=== PATIENT | female | born 1950 | race Caucasian/White ===

== ENCOUNTER 2019-02-01 01:38 | Emergency (ER) | payer MEDICARE ==
[2019-02-01] MEDS ORDERED: Sodium Chloride 0.9% 1000 ML 1,000 ML IV STA (01:56)
--- NOTE | 2019-02-01 01:59 | ERPHSYRPT ---
- History of Present Illness Source: patient Exam Limitations: no limitations Physician History: Vaginal bleeding, intermittently over one month. Bleeding worsened 30 minutes prior to coming into the emergency department, occurring spontaneously Timing/Duration: hour(s) (0.5), constant, sudden, other (began one month ago; 4 total episodes of vaginal bleeding, last episode two days ago) Activites at Onset: none, rest Quality: pressure Onset Location: other (patient has no current pain; approximately 8 weeks ago, patient felt some pain in the RLQ area with radiation to the groin) Pain Radiation: none Severity of Pain-Max: moderate Severity of Pain-Current: none Prior abdominal problems: similar symptoms Modifying Factors: Improves With: nothing Associated Symptoms: No abdominal pain, No fever, No chills, No diaphoresis, No nausea, No vomiting, No dysuria, No nocturia, No polyuria, No urinary frequency , No loss of bladder control, No lower back pain, No swelling, No vaginal discharge, No vaginal fluid leakage Allergies/Adverse Reactions: adhesive Allergy (Intermediate, Verified 06/10/13 10:06) Rash latex Allergy (Intermediate, Verified 06/10/13 10:06) Rash Burning where latex touches Penicillins Allergy (Intermediate, Verified 06/10/13 10:06) Rash Home Medications: Aspirin [Aspirin EC] 81 mg PO DAILY 06/07/13 [History] Clopidogrel Bisulfate 75 mg [PLAVIX 75 MG Tablet] 75 mg PO UD 06/07/13 [ History] Rosuvastatin Calcium [Crestor] 10 mg PO DAILY 06/07/13 [History] Amlodipine Besylate 5 mg PO DAILY 02/01/19 [History] Hx Influenza Vaccination/Date Given: No Hx Pneumococcal Vaccination/Date Given: No - Review of Systems Constitutional: No Fever, No Chills Eyes: No Symptoms, No Eye Redness, No Photophobia, No Vision Changes Ears, Nose, & Throat: No Symptoms, No Epistaxis, No Throat Pain Respiratory: No Cough, No Dyspnea Cardiac: No Chest Pain, No Edema, No Syncope Abdominal/Gastrointestinal: No Abdominal Pain, No Nausea, No Vomiting, No Diarrhea, No Hematemesis, No Hematochezia Genitourinary Symptoms: Vaginal Bleeding, No Dysuria, No Hematuria, No Urinary Retention, No Flank Pain Musculoskeletal: No Back Pain, No Neck Pain Skin: No Rash Neurological: No Dizziness, No Focal Weakness, No Sensory Changes Psychological: No Symptoms Endocrine: No Symptoms Hematologic/Lymphatic: No Easy Bleeding, No Easy Bruising All Other Systems: Reviewed and Negative - Past Medical History Pertinent Past Medical History: Yes Neurological History: Migraines, Peripheral Neuropathy ENT History: No Pertinent History Cardiac History: Congestive Heart Failure, Hypertension, Myocardial Infarction ( [place]), Other Respiratory History: CHF, COPD Endocrine Medical History: Other Musculoskeletal History: Osteoarthritis GI Medical History: No Pertinent History History: No Pertinent History Psycho-Social History: No Pertinent History Female Reproductive Disorders: No Pertinent History Other Medical History: boarderline DMII, L GARFIELD - Past Surgical History Past Surgical History: Yes Neuro Surgical History: No Pertinent History Cardiac: Angioplasty, Cardiac Catheterization, Cardiac Stent Respiratory: No Pertinent History Gastrointestinal: No Pertinent History Genitourinary: No Pertinent History Musculoskeletal: Joint Replacement Female Surgical History: Tubal Ligation Other Surgical History: Left hip replaced 2007 - Social History Smoking Status: Former smoker Exposure to second hand smoke: No Drug Use: none - Nursing Vital Signs Nursing Vital Signs: Initial Vital Signs Temperature 98.0 F 02/01/19 01:39 Pulse Rate 77 02/01/19 01:39 Respiratory Rate 18 02/01/19 01:39 Blood Pressure 122/74 02/01/19 01:39 O2 Sat by Pulse Oximetry 95 02/01/19 01:39 Pain Scale Pain Intensity 0 - Physical Exam General Appearance: no apparent distress, alert Eye Exam: PERRL/EOMI, eyes nml inspection Ears, Nose, Throat Exam: normal ENT inspection, TMs normal, pharynx normal, moist mucous membranes Neck Exam: normal inspection, non-tender, supple, full range of motion Respiratory Exam: normal breath sounds, lungs clear, No respiratory distress Cardiovascular Exam: regular rate/rhythm, normal heart sounds, normal peripheral pulses Gastrointestinal/Abdomen Exam: soft, No tenderness, No mass Pelvic Exam: normal external exam, vaginal bleeding, other (chaperoned by Sydnee Shah RN; clotted blood in the posterior vaginal vault, no active bleeding from vaginal pickens or from the cervix), No cervical motion tenderness Rectal Exam: No blood Back Exam: normal inspection, normal range of motion, No CVA tenderness, No vertebral tenderness Extremity Exam: normal inspection, normal range of motion, pelvis stable Neurologic Exam: alert, oriented x 3, cooperative, 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, normal mood/affect, sensation nml, No motor deficits Skin Exam: normal color, warm, dry - Radiology Ultrasound Exam Pelvis Ultrasound: Other (Reviewed Radiology report from 01/26/2019-showed thickened endometrial stripe with differential including endometrial carcinoma vs endometrial hyperplasia; no masses; ovaries not visualized; no suspicious adnexal masses or fluid collections seen) Ordered Tests: Active Orders 24 hr Category Date Time Status IV Insertion STAT Care 02/01/19 01:56 Active Orthostatic Vital Signs STAT Care 02/01/19 02:41 Active AMYLASE Stat Lab 02/01/19 02:10 Completed CBC W DIFF Stat Lab 02/01/19 02:10 Completed CMP Stat Lab 02/01/19 02:10 Completed CULTURE,URINE Stat Lab 02/01/19 02:10 Received Lactic Acid Stat Lab 02/01/19 02:15 Completed PROTIME WITH INR Stat Lab 02/01/19 02:10 Completed PTT Stat Lab 02/01/19 02:10 Completed UA W/RFX UR CULTURE Stat Lab 02/01/19 02:10 Completed Medication Summary Discontinued Medications Generic Name Dose Route Start Last Admin Trade Name Freq PRN Reason Stop Dose Admin Sodium Chloride 1,000 mls @ 999 mls/hr 02/01/19 01:56 02/01/19 02:17 Sodium Chloride 0.9% 1000 Ml IV 02/01/19 02:56 999 mls/hr .Q1H1M STA Administration Sodium Chloride Confirm 02/01/19 02:16 Sodium Chloride 0.9% 1000 Ml Administered 02/01/19 02:17 Dose 1,000 mls @ ud .ROUTE .K-MED ONE Lab/Rad Data: Laboratory Result Diagrams 02/01/19 02:10 02/01/19 02:10 Laboratory Results 02/01/19 02/01/19 02/01/19 Range/Units 02:15 02:10 02:10 WBC (4.0-10.5) K/mm3 RBC (4.1-5.4) M/mm3 Hgb (12.0-16.0) gm/dl Hct (35-47) % MCV (78-100) fl MCH (26-32) pg MCHC (32-36) g/dl RDW (11.5-14.0) % Plt Count (150-450) K/mm3 MPV (6-9.5) fl Gran % (36.0-66.0) % Eos # (Auto) (0-0.5) Absolute Lymphs (auto) (1.0-4.6) Absolute Monos (auto) (0.0-1.3) Lymphocytes % (24.0-44.0) % Monocytes % (0.0-12.0) % Eosinophils % (0.00-5.0) % Basophils % (0.0-0.4) % Absolute Granulocytes (1.4-6.9) Basophils # (0-0.4) PT 10.7 (9.95-12.35) SECONDS INR 0.95 (0.8-3.0) APTT 28.0 (25.3-37.0) SECONDS Sodium (137-145) mmol/L Potassium (3.5-5.1) mmol/L Chloride (98-107) mmol/L Carbon Dioxide (22-30) mmol/L Anion Gap (5-15) MEQ/L BUN (7-17) mg/dL Creatinine (0.52-1.04) mg/dL Estimated GFR ML/MIN Glucose (74-106) mg/dL Lactic Acid 1.4 (0.4-2.0) Calcium (8.4-10.2) mg/dL Total Bilirubin (0.2-1.3) mg/dL AST (14-36) U/L ALT (0-35) U/L Alkaline Phosphatase (38-126) U/L Serum Total Protein (6.3-8.2) g/dL Albumin (3.5-5.0) g/dL Amylase (30-110) U/L Urine Color YELLOW (YELLOW) Urine Appearance SLIGHTLY CLOUDY (CLEAR) Urine pH 6.0 (5-6) Ur Specific [place] 1.021 (1.005-1.025) Urine Protein 30 (Negative) Urine Ketones NEGATIVE (NEGATIVE) Urine Blood MODERATE (0-5) Ced/ul Urine Nitrite NEGATIVE (NEGATIVE) Urine Bilirubin NEGATIVE (NEGATIVE) Urine Urobilinogen 4 (0-1) mg/dL Ur Leukocyte Esterase NEGATIVE (NEGATIVE) Urine WBC (Auto) 3-5 (0-5) /HPF Urine RBC (Auto) 26-50 (0-2) /HPF U Epithel Cells (Auto) NONE (FEW) /HPF Urine Bacteria (Auto) NONE (NEGATIVE) /HPF Urine Mucus (Auto) SLIGHT (NEGATIVE) /HPF Urine Culture Reflexed ORDERED SEPARATELY (NO) Urine Glucose NEGATIVE (NEGATIVE) mg/dL 02/01/19 02/01/19 Range/Units 02:10 02:10 WBC 6.1 (4.0-10.5) K/mm3 RBC 4.05 L (4.1-5.4) M/mm3 Hgb 11.5 L (12.0-16.0) gm/dl Hct 35.6 (35-47) % MCV 87.9 (78-100) fl MCH 28.3 (26-32) pg MCHC 32.3 (32-36) g/dl RDW 14.7 H (11.5-14.0) % Plt Count 194 (150-450) K/mm3 MPV 9.6 H (6-9.5) fl Gran % 56.6 (36.0-66.0) % Eos # (Auto) 0.20 (0-0.5) Absolute Lymphs (auto) 1.73 (1.0-4.6) Absolute Monos (auto) 0.67 (0.0-1.3) Lymphocytes % 28.2 (24.0-44.0) % Monocytes % 10.9 (0.0-12.0) % Eosinophils % 3.3 (0.00-5.0) % Basophils % 1.0 (0.0-0.4) % Absolute Granulocytes 3.48 (1.4-6.9) Basophils # 0.06 (0-0.4) PT (9.95-12.35) SECONDS INR (0.8-3.0) APTT (25.3-37.0) SECONDS Sodium 141 (137-145) mmol/L Potassium 3.8 (3.5-5.1) mmol/L Chloride 106 (98-107) mmol/L Carbon Dioxide 26 (22-30) mmol/L Anion Gap 13.4 (5-15) MEQ/L BUN 19 H (7-17) mg/dL Creatinine 0.70 (0.52-1.04) mg/dL Estimated GFR > 60.0 ML/MIN Glucose 139 H (74-106) mg/dL Lactic Acid (0.4-2.0) Calcium 9.1 (8.4-10.2) mg/dL Total Bilirubin 0.30 (0.2-1.3) mg/dL AST 29 (14-36) U/L ALT 32 (0-35) U/L Alkaline Phosphatase 73 (38-126) U/L Serum Total Protein 7.2 (6.3-8.2) g/dL Albumin 4.2 (3.5-5.0) g/dL Amylase 46 (30-110) U/L Urine Color (YELLOW) Urine Appearance (CLEAR) Urine pH (5-6) Ur Specific [place] (1.005-1.025) Urine Protein (Negative) Urine Ketones (NEGATIVE) Urine Blood (0-5) Ced/ul Urine Nitrite (NEGATIVE) Urine Bilirubin (NEGATIVE) Urine Urobilinogen (0-1) mg/dL Ur Leukocyte Esterase (NEGATIVE) Urine WBC (Auto) (0-5) /HPF Urine RBC (Auto) (0-2) /HPF U Epithel Cells (Auto) (FEW) /HPF Urine Bacteria (Auto) (NEGATIVE) /HPF Urine Mucus (Auto) (NEGATIVE) /HPF Urine Culture Reflexed (NO) Urine Glucose (NEGATIVE) mg/dL - Progress Progress: improved Progress Note: 02/01/19 02:56 Patient had normal orthostatic vital signs and no further complaints of vaginal bleeding. With patient having normal vitals, orthostatic vital signs, remaining hemodynamically in good condition throughout her time in the emergency department, normal labwork including coagulation factors and lactic acid with a mild drop in Hemoglobin (0.9mg/dl) in comparison to labs from 10 months ago, patient will be discussed with [facility] in [place], [place] to see if patient is a candidate for transfer and admission. 02/01/19 03:26 Dr Mcleod, [employer] WORK[employer] was discussed the patient and her presentation, labs, U/S results and hemodynamics. Dr Mcleod or Dr Stapleton will see the patient as an outpatient in the next 3 days this week for follow-up and patient may be discharged home. Blood Culture(s) Obtained: No Antibiotics given: No Discussed with : Other (Dr Mcleod, [employer] SERVICE WORKER at [facility] in [place], [place]. Dr Mcleod does not feel patient is a candidate for transfer now, but patient will be seen in the next 3 days in the office as an outpatient) Counseled pt/family regarding: lab results, diagnosis, need for follow-up, rad results - Departure Departure Disposition: Home Clinical Impression: Abnormal uterine bleeding, Blood loss anemia Hypertension Qualifiers: Hypertension type: essential hypertension Qualified Code(s): I10 - Essential ( primary) hypertension Condition: Good Critical Care Time: No Referrals: LACY CORDOVA [Primary Care Provider] - Follow Up with PCP BERTHA STAPLETON MD [COURTESY STAFF] - 02/08/19 Instructions: Bleeding After Menopause, Anemia Caused by Low Iron, Adult (DC) Additional Instructions: return immediately to the emergency department if bleeding is any worse or any new symptoms such as dizziness, weakness, palpitations, shortness of breath or any concerning signs or symptoms occur for re-evaluation in the emergency department. Call your [employer] L[employer] Operator on 02/01/2019 in the morning as Dr Stapleton or Dr Mcleod will see you this week in the office.
[2019-02-01 02:16] LABS: Basophil (Absolute #) 0.06 (0-0.4); Eosinophil % 3.3 % (0.00-5.0); Granulocyte Absolute (ANC) 3.48 (1.4-6.9); Granulocytes % 56.6 % (36.0-66.0); Hematocrit 35.6 % (35-47); Hemoglobin 11.5 gm/dl (12.0-16.0); Lymphocyte (Absolute #) 1.73 (1.0-4.6); Lymphocytes % 28.2 % (24.0-44.0); Mean Cell Volume 87.9 fl (78-100); Mean Corpuscular Hgb Concent. 32.3 g/dl (32-36); Mean Platelet Volume 9.6 fl (6-9.5); Monocyte (Absolute #) 0.67 (0.0-1.3); Monocytes % 10.9 % (0.0-12.0); Platelet Count 194 K/mm3 (150-450); Red Blood Count 4.05 M/mm3 (4.1-5.4); Red Cell Distribution Width 14.7 % (11.5-14.0); White Blood Count 6.1 K/mm3 (4.0-10.5)
[2019-02-01] MEDS ORDERED: Sodium Chloride 0.9% 1000 ML 1,000 ML ONE (02:16)
[2019-02-01 02:17] LABS: Mean Corpuscular Hemoglobin 28.3 pg (26-32)
[2019-02-01 02:26] LABS: INR 0.95 (0.8-3.0); PROTIME 10.7 SECONDS (9.95-12.35)
[2019-02-01 02:29] LABS: Appearance SLIGHTLY CLOUDY (CLEAR); Bilirubin NEGATIVE (NEGATIVE); Blood MODERATE Ery/ul (0-5); Glucose NEGATIVE (NEGATIVE); Ketones NEGATIVE (NEGATIVE); Leukocyte Esterase NEGATIVE (NEGATIVE); Mucus SLIGHT /HPF (NEGATIVE); Nitrite NEGATIVE (NEGATIVE); Protein,Urine Dip 30 (Negative); RBC 26-50 /HPF (0-2); Specific Gravity 1.021 (1.005-1.025); Urobilinogen 4 mg/dL (0-1)
[2019-02-01 02:30] LABS: ALBUMIN 4.2 g/dL (3.5-5.0); ALKALINE PHOSPHATASE 73 U/L (38-126); AMYLASE 46 U/L (30-110); ANION GAP 13.4 MEQ/L (5-15); BLOOD UREA NITROGEN 19 mg/dL (7-17); CHLORIDE 106 mmol/L (98-107); Calcium 9.1 mg/dL (8.4-10.2); Carbon Dioxide 26 mmol/L (22-30); Glucose 139 mg/dL (74-106); Potassium 3.8 mmol/L (3.5-5.1); SGOT/AST 29 U/L (14-36); SGPT/ALT 32 U/L (0-35); SODIUM 141 mmol/L (137-145); Total Protein 7.2 g/dL (6.3-8.2)
[2019-02-01 03:58] VITALS: BP 135/76; PULSE 80; O2SAT 97
== END 2019-02-01 04:12 | disposition home or self-care (01) ==
LOC: ED 01:38
DX: N93.9 Abnormal uterine and vaginal bleeding, unspecified (principal); D50.0 Iron deficiency anemia secondary to blood loss (chronic); I10 Essential (primary) hypertension; R10.31 Right lower quadrant pain; Z79.899 Other long term (current) drug therapy
CPT/HCPCS: 36000; 36415; 80053; 81001; 82150; 83605; 85025; 85610; 85730; 87086; 96360; 99284

== ENCOUNTER 2019-03-25 11:10 | Inpatient (IN) | payer MEDICARE ==
--- NOTE | 2019-03-25 11:20 | ERPHSYRPT ---
- History of Present Illness Time Seen by Provider: 03/25/19 11:12 Source: patient, family, old records Exam Limitations: no limitations Physician History: PT IS A 68 Y/O WOMAN S/P STEF FOR ENDOMETRIAL CANCER WHO WAS REFERRED BY HER TEAM AT [facility] FOR CT POSITIVE FOR "EXTENSIVE NEAR OCCLUDING PULMONARY EMBOLI SEEN IN THE DISTAL MAIN PULMONARY ARTERIES EXTENDING INTO ALL LOBAR AND PORTIONS OF THE SEGMENTAL BRANCHES BILATERALLY. HEART IS ENLARGED. NO MASS OR INFILTRATE." PT HAS APPT WITH ONCOLOGY AND MULTIPLE MEDICAL PROBLEMS SO WAS REFERRED BY HER TEAM FOR ANTICOAGULATION MANAGEMENT. PT REFUSED TO GO TO [facility] BC DIFFICULTY WITH TRAVELLING. PT REPORTS THAT SHE HAS BEEN DYSPNEIC FOR " A LONG TIME DENIES CP/PALPITATIONS/FEVER/CHILLS/DYSURIA/HEMATURIA /VAG BLEED OR DC. NO LE ASYM OR LONG TRIPS. + MORE WITH MINIMAL EXERTION. Allergies/Adverse Reactions: adhesive Allergy (Intermediate, Verified 03/25/19 11:26) Rash latex Allergy (Intermediate, Verified 03/25/19 11:26) Rash Burning where latex touches Penicillins Allergy (Intermediate, Verified 03/25/19 11:26) Rash Home Medications: Aspirin [Aspirin EC] 81 mg PO DAILY 06/07/13 [History] Clopidogrel Bisulfate 75 mg [PLAVIX 75 MG Tablet] 75 mg PO UD 06/07/13 [ History] Rosuvastatin Calcium [Crestor] 10 mg PO DAILY 06/07/13 [History] Amlodipine Besylate 5 mg PO DAILY 02/01/19 [History] Hx Tetanus, Diphtheria Vaccination/Date Given: No (unknown) Hx Influenza Vaccination/Date Given: No Hx Pneumococcal Vaccination/Date Given: No - Review of Systems Constitutional: No Symptoms, No Fever, No Chills, No Fatigue, No Lethargy, No Malaise, No Night Sweats, No Weakness, No Weight Loss Eyes: No Symptoms, No Discharge, No Eye Pain, No Eye Redness, No Itchy, No Photophobia, No Tearing, No Vision Changes, No Double Vision, No Foreign Body Sensation Ears, Nose, & Throat: No Symptoms, No Ear Pain, No Ear Discharge, No Hearing Changes, No Tinnitus, No Nose Congestion, No Nose Discharge, No Epistaxis, No Mouth Pain, No Mouth Swelling, No Throat Pain, No Throat Swelling, No Hoarse, No Painful Swallowing, No Stridor Respiratory: No Symptoms, Cough, Dyspnea, Dyspnea on Exertion (MORE), No Cyanosis , No Stridor, No Wheezing Cardiac: No Symptoms, No Chest Pain, No Edema, No Palpitations, No Syncope, No Orthopnea Abdominal/Gastrointestinal: No Symptoms, No Abdominal Pain, No Nausea, No Vomiting, No Diarrhea, No Constipation, No Hematemesis, No Hematochezia, No Melena, No Dysphagia, No Appetite Changes Genitourinary Symptoms: No Symptoms, No Dysuria, No Frequency, No Hematuria, No Hesitancy, No Incontinence, No Urgency, No Urinary Retention, No Flank Pain, No Menorrhagia, No , No Vaginal Bleeding, No Vaginal Discharge Musculoskeletal: No Symptoms, No Arthralgias, No Back Pain, No Neck Pain, No Deformity, No Fall, No Injury, No Joint Redness, No Joint Pain, No Joint Swelling, No Myalgias Skin: No Symptoms, No Cellulitis, No Decubiti, No Induration, No Pruritis, No Rash, No Skin Lesions, No Dryness Neurological: No Symptoms, No Dizziness, No Focal Weakness, No Gait Changes, No Headache, No Irritability, No Lethargy, No Paralysis, No Parasthesia, No Seizure , No Sensory Changes, No Speech Changes, No Tics, No Tremors, No Vertigo Psychological: No Symptoms, No Alcohol Abuse, No Drug Abuse, No Anxiety, No Depression, No Suicidal Ideations, No Homicidal Ideations, No Emotional Lability , No Hallucinations, No Memory Loss, No Mood Changes Endocrine: No Symptoms, No Polyuria, No Polydipsia, No Hair Changes, No Cold Intolerance, No Excessive Sweating, No Goiter Hematologic/Lymphatic: No Symptoms, No Anemia, No Blood Clots, No Easy Bleeding , No Gum Bleeding, No Easy Bruising, No Adenopathy Immunological/Allergic: No Symptoms All Other Systems: Reviewed and Negative - Past Medical History Pertinent Past Medical History: Yes Neurological History: Migraines, Peripheral Neuropathy ENT History: No Pertinent History Cardiac History: Congestive Heart Failure, Hypertension, Myocardial Infarction ( [place]), Other Respiratory History: CHF, COPD Endocrine Medical History: Other Musculoskeletal History: Osteoarthritis GI Medical History: No Pertinent History History: No Pertinent History Psycho-Social History: No Pertinent History Female Reproductive Disorders: No Pertinent History Other Medical History: boarderline DMII, L GARFIELD - Past Surgical History Past Surgical History: Yes Neuro Surgical History: No Pertinent History Cardiac: Angioplasty, Cardiac Catheterization, Cardiac Stent Respiratory: No Pertinent History Gastrointestinal: No Pertinent History Genitourinary: No Pertinent History Musculoskeletal: Joint Replacement Female Surgical History: Tubal Ligation Other Surgical History: Left hip replaced 2007 - Social History Smoking Status: Former smoker Exposure to second hand smoke: No Drug Use: none Patient Lives Alone: No - Nursing Vital Signs Nursing Vital Signs: Initial Vital Signs Temperature 97.6 F 03/25/19 11:15 Pulse Rate 116 H 03/25/19 11:15 Respiratory Rate 26 H 03/25/19 11:15 Blood Pressure 157/96 03/25/19 11:15 O2 Sat by Pulse Oximetry 92 L 03/25/19 11:15 Pain Scale Pain Intensity 0 - Physical Exam General Appearance: no apparent distress, alert Eye Exam: PERRL/EOMI, eyes nml inspection, other (fundi normal petros), No scleral icterus, No pale conjunctivae, No photophobia, No EOM palsy/anisocoria Ears, Nose, Throat Exam: normal ENT inspection, TMs normal, pharynx normal, TM abnormal (L), other (uvula midline, floor of mouth soft), No moist mucous membranes, No dry mucous membranes, No TM abnormal (R), No pharyngeal erythema, No tonsillar exudate Neck Exam: normal inspection, non-tender, supple, full range of motion, No meningismus, No mass, No Brudzinski, No Kernig's, No carotid bruit, No JVD, No limited range of motion, No lymphadenopathy, No midline tenderness, No thyromegaly Respiratory Exam: normal breath sounds, lungs clear, airway intact, No chest tenderness, No respiratory distress, No diminished breath sounds, No accessory muscle use, No prolonged expirations, No crackles/rales, No rhonchi, No wheezing , No stridor, No pleural rub Cardiovascular Exam: regular rate/rhythm, normal heart sounds, normal peripheral pulses, tachycardia, capillary refill <2 sec, No murmur, No friction rub, No gallop, No bradycardia, No irregular, No capillary refill 2-3 sec, No capillary refill >3 sec, No edema, No pulse deficit Gastrointestinal/Abdomen Exam: soft, normal bowel sounds, No tenderness, No distention, No mass, No guarding, No ecchymosis, No pulsatile mass, No rebound, No hernia, No hepatomegaly, No organomegaly, No splenomegaly, No bruit Pelvic Exam: normal external exam Rectal Exam: deferred Back Exam: normal inspection, normal range of motion, other (neg slr petros, no sacral anesthesia, dtr 2/4 pteros patella), No CVA tenderness, No vertebral tenderness, No rash, No decreased range of motion, No muscle spasm, No point tenderness Extremity Exam: normal inspection, normal range of motion, pelvis stable, No amputations, No contusions, No calf tenderness, No deformities, No lacerations, No parasthesia, No paralysis, No inflammation, No joint swelling, No limited range of motion, No pedal edema, No swelling, No tenderness Neurologic Exam: alert, oriented x 3, cooperative, thread trimmer II-XII nml as tested, normal mood/affect, nml cerebellar function, nml station & gait, sensation nml, No motor deficits, No sensory deficit, No disoriented, No confusion, No agitation, No uncooperative, No intoxicated appearance, No depressed mood/affect , No motor weakness, No facial droop, No slurred speech, No aphasia, No dysarthria, No abnormal gait, No abnormal cerebellar tests, No abnormal thread trimmer II- XII, No EOM palsy Skin Exam: normal color, warm, dry, No rash, No petechiae, No jaundice, No abrasion, No cyanosis, No diaphoresis, No decubitus, No embolic lesions, No ecchymosis, No jaundice, No laceration, No mottled, No pale Lymphatic Exam: No adenopathy SpO2 Interpretation: normal O2 Delivery: Room Air - Course Nursing assessment & vital signs reviewed: Yes EKG Interpreted by Me: RATE (89), NORMAL AXIS, NORMAL INTERVALS, NORMAL QRS, NORMAL ST-T Ordered Tests: Active Orders 24 hr Category Date Time Status Crown Perforator Operator STAT Care 03/25/19 11:23 Active EKG-ER Only STAT Care 03/25/19 11:21 Active IV Insertion STAT Care 03/25/19 11:21 Active Oxygen-ED Only Nasal Cannula 2 lpm Care 03/25/19 11:21 Active Pulse Oximetry (ED) STAT Care 03/25/19 11:21 Active ABG [ARTERIAL BLOOD GASES] Stat Lab 03/25/19 11:45 Completed CBC W DIFF Stat Lab 03/25/19 11:37 Completed CMP Stat Lab 03/25/19 11:37 Completed PROTIME WITH INR Stat Lab 03/25/19 11:37 Completed PTT Stat Lab 03/25/19 11:37 Completed TROPONIN Q3H Lab 03/25/19 11:37 Completed TROPONIN Q3H Lab 03/25/19 14:30 Ordered TROPONIN Q3H Lab 03/25/19 17:30 Ordered TROPONIN Q3H Lab 03/25/19 20:30 Ordered TROPONIN Q3H Lab 03/25/19 23:30 Ordered UA W/RFX UR CULTURE Stat Lab 03/25/19 11:23 Uncollected Medication Summary Generic Name Dose Route Start Last Admin Trade Name Freq PRN Reason Stop Dose Admin Heparin Sodium/Dextrose 25,000 units in 250 mls @ 10 mls/hr 03/25/19 11:30 12:02 Heparin 25,000 Units/D5w 250ml Premix IV 04/24/19 11:29 10 mls/hr .Q24H GUANAKO 10 mls/hr Administration Discontinued Medications Generic Name Dose Route Start Last Admin Trade Name Freq PRN Reason Stop Dose Admin Heparin Sodium (Beef Lung) 5,000 unit 03/25/19 11:24 03/25/19 11:59 Heparin 5000 Units/0.5 Ml (High Risk Med) IV 03/25/19 11:25 5,000 unit STAT ONE Administration Heparin Sodium (Beef Lung) Confirm 03/25/19 11:46 Heparin 5000 Units/0.5 Ml (High Risk Med) Administered 03/25/19 11:47 Dose 5,000 unit .ROUTE .STK-MED ONE Sodium Chloride 1,000 mls @ 999 mls/hr 03/25/19 11:21 03/25/19 12:00 Sodium Chloride 0.9% 1000 Ml IV 03/25/19 12:21 999 mls/hr .Q1H1M STA Administration Sodium Chloride Confirm 03/25/19 11:55 Sodium Chloride 0.9% 1000 Ml Administered 03/25/19 11:56 Dose 1,000 mls @ ud .ROUTE .STK-MED ONE Lab/Rad Data: Laboratory Result Diagrams 03/25/19 11:37 03/25/19 11:37 Laboratory Results 03/25/19 03/25/19 03/25/19 Range/Units 11:45 11:37 11:37 WBC (4.0-10.5) K/mm3 RBC (4.1-5.4) M/mm3 Hgb (12.0-16.0) gm/dl Hct (35-47) % MCV (78-100) fl MCH (26-32) pg MCHC (32-36) g/dl RDW (11.5-14.0) % Plt Count (150-450) K/mm3 MPV (6-9.5) fl Gran % (36.0-66.0) % Eos # (Auto) (0-0.5) Absolute Lymphs (auto) (1.0-4.6) Absolute Monos (auto) (0.0-1.3) Lymphocytes % (24.0-44.0) % Monocytes % (0.0-12.0) % Eosinophils % (0.00-5.0) % Basophils % (0.0-0.4) % Absolute Granulocytes (1.4-6.9) Basophils # (0-0.4) PT 12.4 H (9.95-12.35) SECONDS INR 1.10 (0.8-3.0) APTT 30.5 (25.3-37.0) SECONDS Puncture Site LEFT BRACHIAL pCO2 35 (35-45) mmHg pO2 67 L (75-100) mmHg Base Excess 4.1 H (-2.0-2.0) O2 Saturation 93.0 L (94-100) g/dF ABG pH 7.50 H (7.35-7.45) ABG HCO3 27.3 (22-28) ABG O2 Sat (Measured) 95.9 (95-100) % Elías Test NOT APPLICABLE A-a Gradient 39 a/A Ratio 0.63 Hemoglobin 11.1 Carboxyhemoglobin 2.2 (0.0-6.9) % THgb Methemoglobin 0.8 L (1.4-1.5) % Temperature 37.0 C POC O2 Flow Rate 21 % Sodium (137-145) mmol/L Potassium 4.2 (3.5-5.1) mmol/L Chloride (98-107) mmol/L Carbon Dioxide (22-30) mmol/L Anion Gap (5-15) MEQ/L BUN (7-17) mg/dL Creatinine (0.52-1.04) mg/dL Estimated GFR ML/MIN Glucose (74-106) mg/dL Calcium (8.4-10.2) mg/dL Total Bilirubin (0.2-1.3) mg/dL AST (14-36) U/L ALT (0-35) U/L Alkaline Phosphatase (38-126) U/L Troponin I < 0.012 (0.000-0.034) ng/mL Serum Total Protein (6.3-8.2) g/dL Albumin (3.5-5.0) g/dL 03/25/19 03/25/19 Range/Units 11:37 11:37 WBC 7.4 (4.0-10.5) K/mm3 RBC 4.23 (4.1-5.4) M/mm3 Hgb 11.3 L (12.0-16.0) gm/dl Hct 35.4 (35-47) % MCV 83.7 (78-100) fl MCH 26.7 (26-32) pg MCHC 31.9 L (32-36) g/dl RDW 14.6 H (11.5-14.0) % Plt Count 256 (150-450) K/mm3 MPV 9.8 H (6-9.5) fl Gran % 70.5 H (36.0-66.0) % Eos # (Auto) 0.24 (0-0.5) Absolute Lymphs (auto) 1.27 (1.0-4.6) Absolute Monos (auto) 0.62 (0.0-1.3) Lymphocytes % 17.3 L (24.0-44.0) % Monocytes % 8.4 (0.0-12.0) % Eosinophils % 3.3 (0.00-5.0) % Basophils % 0.5 (0.0-0.4) % Absolute Granulocytes 5.18 (1.4-6.9) Basophils # 0.04 (0-0.4) PT (9.95-12.35) SECONDS INR (0.8-3.0) APTT (25.3-37.0) SECONDS Puncture Site pCO2 (35-45) mmHg pO2 (75-100) mmHg Base Excess (-2.0-2.0) O2 Saturation (94-100) g/dF ABG pH (7.35-7.45) ABG HCO3 (22-28) ABG O2 Sat (Measured) (95-100) % Elías Test A-a Gradient a/A Ratio Hemoglobin Carboxyhemoglobin (0.0-6.9) % THgb Methemoglobin (1.4-1.5) % Temperature C POC O2 Flow Rate % Sodium 143 (137-145) mmol/L Potassium 4.0 (3.5-5.1) mmol/L Chloride 103 (98-107) mmol/L Carbon Dioxide 27 (22-30) mmol/L Anion Gap 17.4 H (5-15) MEQ/L BUN 14 (7-17) mg/dL Creatinine 0.79 (0.52-1.04) mg/dL Estimated GFR > 60.0 ML/MIN Glucose 122 H (74-106) mg/dL Calcium 9.7 (8.4-10.2) mg/dL Total Bilirubin 0.60 (0.2-1.3) mg/dL AST 23 (14-36) U/L ALT 21 (0-35) U/L Alkaline Phosphatase 78 (38-126) U/L Troponin I (0.000-0.034) ng/mL Serum Total Protein 8.0 (6.3-8.2) g/dL Albumin 4.6 (3.5-5.0) g/dL - Progress Progress: improved Progress Note: 03/25/19 11:30 GUILLAUME MAYORGA ACCEPTS ADMIT TO ICU CARE TRANSFERRED. FINDINGS REIVEWED WITH PT ALL QUESTIONS ANSWERED TO HER AND FAMILY SATISFACTION 03/25/19 12:10 ABG CW PRIMARY RESP ALKALOSIS THAT IS CHRONIC WITH SECONDARY METABOLIC ALKALOSIS 03/25/19 12:14 AWAIT UA AND EKG. PT STABLE FOR ICU. HEPARIN GTT STARTED. PT MORE COMFORTABLE ON 2L NC. 03/25/19 12:19 Total critical care time: Approximately 30 minutes DUE TO PETROS EXTENSIVE PE REQUIRING HEPARIN GTT Due to a high probability of clinically significant, life threatening deterioration, the patient required my highest level of preparedness to intervene emergently and I personally spent this critical care time directly and personally managing the patient. This critical care time included obtaining a history; examining the patient; pulse oximetry; ordering and review of studies ; arranging urgent treatment with development of a management plan; evaluation of patient's response to treatment; frequent reassessment; and, discussions with other providers. This critical care time was performed to assess and manage the high probability of imminent, life-threatening deterioration that could result in multi-organ failure. It was exclusive of separately billable procedures and treating other patients and teaching time. Discussed with : Geovany Will see patient in: hospital (full admit) Counseled pt/family regarding: drug and/or alcohol abuse, lab results, diagnosis , need for follow-up, rad results, smoking cessation - Departure Departure Disposition: In-patient Admission Clinical Impression: Pulmonary embolism, bilateral Condition: Good Critical Care Time: Yes Critical Care Time(excluding separately billable procedures): Critical 30-74 mins (Total critical care time: Approximately 30 minutes) Referrals: LACY CORDOVA [Primary Care Provider] -
[2019-03-25] MEDS ORDERED: Sodium Chloride 0.9% 1000 ML 1,000 ML IV STA (11:21)
[2019-03-25] MEDS ORDERED: Heparin 5000 UNITS/0.5 ML (HIGH RISK MED) IV ONE ×2 (11:24→21:19)
[2019-03-25 11:45] LABS: Absolute Neutrophil Ct (ANC) 5.18 (1.4-6.9); BASOPHIL % 0.5 % (0.0-0.4); Basophil (Absolute #) 0.04 (0-0.4); Eosinophil % 3.3 % (0.00-5.0); Eosinophil (Absolute #) 0.24 (0-0.5); Hematocrit 35.4 % (35-47); Hemoglobin 11.3 gm/dl (12.0-16.0); Lymphocyte (Absolute #) 1.27 (1.0-4.6); Lymphocytes % 17.3 % (24.0-44.0); Mean Cell Volume 83.7 fl (78-100); Mean Corpuscular Hemoglobin 26.7 pg (26-32); Mean Corpuscular Hgb Concent. 31.9 g/dl (32-36); Mean Platelet Volume 9.8 fl (6-9.5); Monocyte (Absolute #) 0.62 (0.0-1.3); Monocytes % 8.4 % (0.0-12.0); Neutrophil % 70.5 % (36.0-66.0); Platelet Count 256 K/mm3 (150-450); Red Blood Count 4.23 M/mm3 (4.1-5.4); Red Cell Distribution Width 14.6 % (11.5-14.0); White Blood Count 7.4 K/mm3 (4.0-10.5)
[2019-03-25] MEDS ORDERED: Heparin 5000 UNITS/0.5 ML (HIGH RISK MED) ONE ×2 (11:46→21:15)
[2019-03-25] MEDS ORDERED: Heparin 25,000 units/D5W 250ML PREMIX 25,000 UNITS/250 ML BAG IV ONE (11:46)
[2019-03-25 11:51] LABS: A-aADO2 39; ABG HEMOGLOBIN 11.1; ABG POTASSIUM 4.2 (3.5-5.1); ARTERIAL BLD GAS O2 SATURATION 95.9 % (95-100); ARTERIAL BLOOD GAS BASE EXCESS 4.1 (-2.0-2.0); ARTERIAL BLOOD GAS FIO2 21 %; ARTERIAL BLOOD GAS PCO2 35 mmHg (35-45); ARTERIAL BLOOD GAS PO2 67 mmHg (75-100); CARBOXYHEMOGLOBIN 2.2 % THgb (0.0-6.9); HCO3- 27.3 (22-28); Methhemoglobin 0.8 % (1.4-1.5); paO2 pAO1 0.63
[2019-03-25 11:52] LABS: INR 1.1 (0.8-3.0); PROTIME 12.4 SECONDS (9.95-12.35)
[2019-03-25 11:52] LABS: ABG SITE LEFT BRACHIAL
[2019-03-25 11:55] LABS: PTT 30.5 SECONDS (25.3-37.0)
[2019-03-25] MEDS ORDERED: Sodium Chloride 0.9% 1000 ML 1,000 ML ONE (11:55)
[2019-03-25 11:56] LABS: ALBUMIN 4.6 g/dL (3.5-5.0); ALKALINE PHOSPHATASE 78 U/L (38-126); ANION GAP 17.4 MEQ/L (5-15); BLOOD UREA NITROGEN 14 mg/dL (7-17); CHLORIDE 103 mmol/L (98-107); Calcium 9.7 mg/dL (8.4-10.2); Carbon Dioxide 27 mmol/L (22-30); Creatinine 1 0.79 mg/dL (0.52-1.04); Glucose 122 mg/dL (74-106); SGOT/AST 23 U/L (14-36); SGPT/ALT 21 U/L (0-35); SODIUM 143 mmol/L (137-145)
[2019-03-25] MEDS: Heparin 25,000 units/D5W 250ML PREMIX 25,000 UNITS/250 ML BAG IV SCH (12:02)
[2019-03-25] MEDS ORDERED: Ativan 0.5 MG PO ONE (12:25)
[2019-03-25] MEDS ORDERED: Ativan 1 MG ONE (12:31)
[2019-03-25] MEDS ORDERED: ZOFRAN ODT 4 MG PO PRN (13:47)
[2019-03-25] MEDS ORDERED: Zofran 4 MG/2 ML VIAL IV PRN (13:47)
[2019-03-25 14:00] LABS: Appearance CLEAR (CLEAR); Bilirubin NEGATIVE (NEGATIVE); Blood SMALL Ery/ul (0-5); Glucose NEGATIVE (NEGATIVE); Ketones NEGATIVE (NEGATIVE); Leukocyte Esterase NEGATIVE (NEGATIVE); Mucus SLIGHT /HPF (NEGATIVE); Nitrite NEGATIVE (NEGATIVE); Protein,Urine Dip NEGATIVE (Negative); Specific Gravity 1.038 (1.005-1.025); Urobilinogen NEGATIVE mg/dL (0-1)
--- NOTE | 2019-03-25 15:01 | PCM.HP ---
History of Present Illness - Chief Complaint Chief Complaint: bilat PEs History of Present Illness: is a 68 year old female that was seen today for PE diagnosis noted on CTA patient had done today. Patient reports that she has felt more short of breath for the past month. Patient reports that she was experiencing this shortness of breath even prior to her hysterectomy surgery performed three weeks ago. She reports that she attributed the SOB to anxiety. Patient denies any chest pain or SOB at this time. She denies any pain in her lower extremities. The hysterectomy she had was due to uterine cancer as reported by patient. Patient also states that she is on plavix and aspirin for hx of cardiac stent. She states she has been on plavix since 2006. Patient denies any recent bleeding following her hysterectomy. She reports that she saw her surgeon yesterday. Patient reports a hx of diabetes but her BS run around 106 and she is no longer taking metformin. Patient denies any swelling in lower extremities. - Review of Systems Eyes: No Vision Changes, No Double Vision Ears, Nose, & Throat: Other (Throat irritation), No Nose Congestion, No Sinus Drainage Respiratory: Short Of Breath (Recent hx of SOB but not at this time), No Cough Cardiac: No Chest Pain, No Edema, No Palpitations Abdominal/Gastrointestinal: No Abdominal Pain, No Nausea, No Vomiting, No Diarrhea, No Constipation Genitourinary Symptoms: No Dysuria, No Frequency Musculoskeletal: No Back Pain Medications & Allergies Home Medications: Home Medication List Aspirin [Aspirin EC] 81 mg PO DAILY 06/07/13 [History Confirmed 03/25/19] Clopidogrel Bisulfate 75 mg [PLAVIX 75 MG Tablet] 75 mg PO UD 06/07/13 [ History Confirmed 03/25/19] Rosuvastatin Calcium [Crestor] 10 mg PO DAILY 06/07/13 [History Confirmed ] Amlodipine Besylate 5 mg PO DAILY 02/01/19 [History Confirmed 03/25/19] Docusate Sodium 100 mg [Colace 100 MG] 100 mg PO HS 03/25/19 [History Confirmed 03/25/19] Allergies/Adverse Reactions: Allergies Allergy/AdvReac Type Severity Reaction Status Date / Time adhesive Allergy Intermediate Rash Verified 03/25/19 11:26 latex Allergy Intermediate Rash Verified 03/25/19 11:26 Penicillins Allergy Intermediate Rash Verified 03/25/19 11:26 - Past Medical History Past Medical History: Yes Neurological History: Migraines, Peripheral Neuropathy ENT History: No Pertinent History Cardiac History: Congestive Heart Failure, Hypertension, Myocardial Infarction ( [place]), Other Respiratory History: CHF, COPD Endocrine Medical History: Other Musculoskelatal History: Osteoarthritis GI Medical History: No Pertinent History History: No Pertinent History Pyscho-Social History: No Pertinent History Reproductive Disorders: No Pertinent History Comment: edgardo DMII, L GARFIELD - Female History Are you now?: No - Past Surgical History Past Surgical History: Yes Neuro Surgical History: No Pertinent History Cardiac History: Angioplasty, Cardiac Catheterization, Cardiac Stent Respiratory Surgery: No Pertinent History GI Surgical History: No Pertinent History Genitourinary Surgical Hx: No Pertinent History Musculskeletal Surgical Hx: Joint Replacement Female Surgical History: Tubal Ligation Other Surgical History: Left hip replaced 2007 - Social History Smoking Status: Never smoker Exposure to second hand smoke: No Alcohol: None Drug Use: none - Physical Exam Vital Signs: Vital Signs - 24 hr Temp Pulse Resp BP Pulse Ox 03/25/19 13:23 97 H 23 158/97 98 03/25/19 12:20 90 20 125/75 99 03/25/19 12:12 95 03/25/19 11:15 97.6 F 116 H 26 H 157/96 95 Oxygen-Last 24 hours O2 Percentage 2 Liters = 28% O2 Percentage 2 Liters = 28% General Appearance: no apparent distress Neurologic Exam: alert, oriented x 3, cooperative, normal mood/affect Eye Exam: eyes nml inspection, No scleral icterus, No pale conjunctivae Ears, Nose, Throat Exam: moist mucous membranes Respiratory Exam: normal breath sounds, lungs clear, No chest tenderness, No crackles/rales Cardiovascular Exam: regular rate/rhythm, normal heart sounds, No murmur, No tachycardia, No irregular Gastrointestinal/Abdomen Exam: soft, normal bowel sounds, No tenderness, No distention, No mass, No guarding Pelvic Exam: deferred Rectal Exam: deferred Back Exam: normal inspection Extremity Exam: normal inspection Skin Exam: normal color, warm, dry, other (Patient has small 1 cm lesion on l side of face near tragus of ear. She has had some bleeding from this lesion), No rash Results - Labs Lab/Micro Results: Lab Results-Last 24 Hours 03/25/19 03/25/19 03/25/19 Range/Units 11:37 11:37 11:37 WBC 7.4 (4.0-10.5) K/mm3 RBC 4.23 (4.1-5.4) M/mm3 Hgb 11.3 L (12.0-16.0) gm/dl Hct 35.4 (35-47) % MCV 83.7 (78-100) fl MCH 26.7 (26-32) pg MCHC 31.9 L (32-36) g/dl RDW 14.6 H (11.5-14.0) % Plt Count 256 (150-450) K/mm3 MPV 9.8 H (6-9.5) fl Gran % 70.5 H (36.0-66.0) % Eos # (Auto) 0.24 (0-0.5) Absolute Lymphs (auto) 1.27 (1.0-4.6) Absolute Monos (auto) 0.62 (0.0-1.3) Lymphocytes % 17.3 L (24.0-44.0) % Monocytes % 8.4 (0.0-12.0) % Eosinophils % 3.3 (0.00-5.0) % Basophils % 0.5 (0.0-0.4) % Absolute Granulocytes 5.18 (1.4-6.9) Basophils # 0.04 (0-0.4) PT 12.4 H (9.95-12.35) SECONDS INR 1.10 (0.8-3.0) APTT 30.5 (25.3-37.0) SECONDS Puncture Site pCO2 (35-45) mmHg pO2 (75-100) mmHg Base Excess (-2.0-2.0) O2 Saturation (94-100) g/dF ABG pH (7.35-7.45) ABG HCO3 (22-28) ABG O2 Sat (Measured) (95-100) % Elías Test A-a Gradient a/A Ratio Hemoglobin Carboxyhemoglobin (0.0-6.9) % THgb Methemoglobin (1.4-1.5) % Temperature C POC O2 Flow Rate % Sodium 143 (137-145) mmol/L Potassium 4.0 (3.5-5.1) mmol/L Chloride 103 (98-107) mmol/L Carbon Dioxide 27 (22-30) mmol/L Anion Gap 17.4 H (5-15) MEQ/L BUN 14 (7-17) mg/dL Creatinine 0.79 (0.52-1.04) mg/dL Estimated GFR > 60.0 ML/MIN Glucose 122 H (74-106) mg/dL Calcium 9.7 (8.4-10.2) mg/dL Total Bilirubin 0.60 (0.2-1.3) mg/dL AST 23 (14-36) U/L ALT 21 (0-35) U/L Alkaline Phosphatase 78 (38-126) U/L Troponin I (0.000-0.034) ng/mL Serum Total Protein 8.0 (6.3-8.2) g/dL Albumin 4.6 (3.5-5.0) g/dL Urine Color (YELLOW) Urine Appearance (CLEAR) Urine pH (5-6) Ur Specific Sixes (1.005-1.025) Urine Protein (Negative) Urine Ketones (NEGATIVE) Urine Blood (0-5) Ced/ul Urine Nitrite (NEGATIVE) Urine Bilirubin (NEGATIVE) Urine Urobilinogen (0-1) mg/dL Ur Leukocyte Esterase (NEGATIVE) Urine WBC (Auto) (0-5) /HPF Urine RBC (Auto) (0-2) /HPF U Epithel Cells (Auto) (FEW) /HPF Urine Bacteria (Auto) (NEGATIVE) /HPF Urine Mucus (Auto) (NEGATIVE) /HPF Urine Culture Reflexed (NO) Urine Glucose (NEGATIVE) mg/dL 03/25/19 03/25/19 03/25/19 Range/Units 11:37 11:45 13:25 WBC (4.0-10.5) K/mm3 RBC (4.1-5.4) M/mm3 Hgb (12.0-16.0) gm/dl Hct (35-47) % MCV (78-100) fl MCH (26-32) pg MCHC (32-36) g/dl RDW (11.5-14.0) % Plt Count (150-450) K/mm3 MPV (6-9.5) fl Gran % (36.0-66.0) % Eos # (Auto) (0-0.5) Absolute Lymphs (auto) (1.0-4.6) Absolute Monos (auto) (0.0-1.3) Lymphocytes % (24.0-44.0) % Monocytes % (0.0-12.0) % Eosinophils % (0.00-5.0) % Basophils % (0.0-0.4) % Absolute Granulocytes (1.4-6.9) Basophils # (0-0.4) PT (9.95-12.35) SECONDS INR (0.8-3.0) APTT (25.3-37.0) SECONDS Puncture Site LEFT BRACHIAL pCO2 35 (35-45) mmHg pO2 67 L (75-100) mmHg Base Excess 4.1 H (-2.0-2.0) O2 Saturation 93.0 L (94-100) g/dF ABG pH 7.50 H (7.35-7.45) ABG HCO3 27.3 (22-28) ABG O2 Sat (Measured) 95.9 (95-100) % Elías Test NOT APPLICABLE A-a Gradient 39 a/A Ratio 0.63 Hemoglobin 11.1 Carboxyhemoglobin 2.2 (0.0-6.9) % THgb Methemoglobin 0.8 L (1.4-1.5) % Temperature 37.0 C POC O2 Flow Rate 21 % Sodium (137-145) mmol/L Potassium 4.2 (3.5-5.1) mmol/L Chloride (98-107) mmol/L Carbon Dioxide (22-30) mmol/L Anion Gap (5-15) MEQ/L BUN (7-17) mg/dL Creatinine (0.52-1.04) mg/dL Estimated GFR ML/MIN Glucose (74-106) mg/dL Calcium (8.4-10.2) mg/dL Total Bilirubin (0.2-1.3) mg/dL AST (14-36) U/L ALT (0-35) U/L Alkaline Phosphatase (38-126) U/L Troponin I < 0.012 (0.000-0.034) ng/mL Serum Total Protein (6.3-8.2) g/dL Albumin (3.5-5.0) g/dL Urine Color STRAW (YELLOW) Urine Appearance CLEAR (CLEAR) Urine pH 8.0 (5-6) Ur Specific Sixes 1.038 (1.005-1.025) Urine Protein NEGATIVE (Negative) Urine Ketones NEGATIVE (NEGATIVE) Urine Blood SMALL (0-5) Ced/ul Urine Nitrite NEGATIVE (NEGATIVE) Urine Bilirubin NEGATIVE (NEGATIVE) Urine Urobilinogen NEGATIVE (0-1) mg/dL Ur Leukocyte Esterase NEGATIVE (NEGATIVE) Urine WBC (Auto) NONE (0-5) /HPF Urine RBC (Auto) NONE (0-2) /HPF U Epithel Cells (Auto) NONE (FEW) /HPF Urine Bacteria (Auto) NONE (NEGATIVE) /HPF Urine Mucus (Auto) SLIGHT (NEGATIVE) /HPF Urine Culture Reflexed NO (NO) Urine Glucose NEGATIVE (NEGATIVE) mg/dL - Radiology Impressions Radiology Exams & Impressions: Radiology Procedures Category Date Time Status ECHO W/2D AND DOPPLER [US] Stat Exams 03/25/19 14:30 Ordered ULTRASOUND BILATERAL LOWER EXTREMITY [VENOUS BILATERAL Exams 03/25/19 Ordered EXTREMITY] [US] Stat Assessment/Plan (1) Pulmonary embolism, bilateral Current Visit: Yes Status: Acute Assessment & Plan: Patient has reported hx of PE on CTA. Patient was started on heparin in ER. Patient was admitted to ICU. Discussed case with cardiology Dr Rosas. Patient will be monitored in ICU on heparin drip. Patient will have PT repeated every 6 hours. Patient will continue on aspirin but will hold plavix at this time per cardiology recs. Patient will stay on heparin for 48-72 hours and then transition to eliquis. Stat echo and stat lower extremity dopplers were ordered as well. Will follow up on results. If R heart strain present or if patient starts experiencing hypotension and or hypoxia, will transfer to [facility] for further management. Patient needs to be on reversible anticoagulation due to recent surgery. Patient can resume regular diet. Code(s): I26.99 - OTHER PULMONARY EMBOLISM WITHOUT ACUTE COR PULMONALE (2) Hx of hysterectomy Current Visit: Yes Status: Acute Assessment & Plan: Patient had hysterectomy done 3 weeks ago for uterine cancer as reported by patient. Will continue to monitor for any vaginal bleeding or complaints of abdominal pain or tenderness as patient is on heparin for PEs. Code(s): Z90.710 - ACQUIRED ABSENCE OF BOTH CERVIX AND UTERUS (3) Hypertension Current Visit: No Status: Acute Qualifiers: Hypertension type: essential hypertension Qualified Code(s): I10 - Essential (primary) hypertension Assessment & Plan: Patient has hx of hypertension treated with amlodipine. Will continue home medications for hypertension. Patient will have additional medications added if she continues to be hypertensive. Code(s): I10 - ESSENTIAL (PRIMARY) HYPERTENSION
[2019-03-25] MEDS: TYLENOL EXTRA STRENGTH 500 MG PO PRN ×2 (19:33→19:44)
[2019-03-25] MEDS: Colace 100 MG PO SCH (21:30)
--- NOTE | 2019-03-25 22:00 | XRAY ---
Indication: Pulmonary emboli. Two-dimensional sonogram and color Doppler imaging of the major venous vessels of the left and right leg was performed. Comparison: None No thrombus seen in the examined deep venous vessels of the left and right leg including greater saphenous vein. Veins demonstrate normal compressibility. Venous waveforms are normal with and without augmentation. Impression: Left and right legs negative for DVT. Comment: Preliminary report was given.
[2019-03-26 06:05] LABS: Hematocrit 31.5 % (35-47); Hemoglobin 9.7 gm/dl (12.0-16.0); Mean Cell Volume 85.6 fl (78-100); Mean Corpuscular Hgb Concent. 30.8 g/dl (32-36); Mean Platelet Volume 10.3 fl (6-9.5); Platelet Count 238 K/mm3 (150-450); Red Blood Count 3.68 M/mm3 (4.1-5.4); Red Cell Distribution Width 14.8 % (11.5-14.0); White Blood Count 5.7 K/mm3 (4.0-10.5)
[2019-03-26 06:06] LABS: ANION GAP 13.6 MEQ/L (5-15); BLOOD UREA NITROGEN 14 mg/dL (7-17); CHLORIDE 104 mmol/L (98-107); Calcium 9.1 mg/dL (8.4-10.2); Carbon Dioxide 28 mmol/L (22-30); Creatinine 1 0.67 mg/dL (0.52-1.04); Glucose 111 mg/dL (74-106); Potassium 4.2 mmol/L (3.5-5.1); SODIUM 141 mmol/L (137-145)
[2019-03-26 06:12] LABS: Mean Corpuscular Hemoglobin 26.3 pg (26-32)
[2019-03-26] MEDS ORDERED: Heparin 5000 UNITS/0.5 ML (HIGH RISK MED) IV PRN (07:53)
[2019-03-26] MEDS ORDERED: ECOTRIN 81 MG PO SCH (10:00)
[2019-03-26] MEDS ORDERED: NON-FORMULARY ITEM (Rosuvastatin Calcium [Crestor] 10 MG) PO SCH (10:00)
[2019-03-26] MEDS: ZOCOR 20MG PO SCH (10:57)
[2019-03-26] MEDS: NORVASC 5 MG PO SCH (10:57)
[2019-03-26] MEDS: Heparin 25,000 units/D5W 250ML PREMIX 25,000 UNITS/250 ML BAG IV SCH (11:55)
--- NOTE | 2019-03-26 16:51 | PCM.NOTE ---
Date and Time: 03/26/19 [facility] Subjective Assessment: 68 yr old female seen and examined this am. Patient reports that she feels much better. She reports feeling less short of breath. Patient reports that she has not noticed any bleeding. Patient denies any other reported concerns. - Review of Systems Constitutional: No Symptoms Eyes: No Vision Changes Ears, Nose, & Throat: No Nose Congestion, No Sinus Drainage, No Throat Pain Respiratory: Short Of Breath (Has greatly improved), No Cough Cardiac: No Chest Pain, No Edema, No Palpitations Abdominal/Gastrointestinal: No Abdominal Pain, No Nausea, No Vomiting, No Diarrhea, No Constipation, No Hematochezia, No Melena Genitourinary Symptoms: No Symptoms Musculoskeletal: No Symptoms Skin: No Symptoms Neurological: No Dizziness Hematologic/Lymphatic: Easy Bruising (With blood draws) Objective Exam General Appearance: no apparent distress Neurologic Exam: alert, oriented x 3, cooperative, normal mood/affect Skin Exam: normal color, warm, dry, No rash Eye Exam: eyes nml inspection, No scleral icterus Ears, Nose, Throat Exam: moist mucous membranes Neck Exam: normal inspection Respiratory Exam: normal breath sounds, lungs clear, No chest tenderness, No respiratory distress, No crackles/rales Cardiovascular Exam: regular rate/rhythm, normal heart sounds, No murmur Gastrointestinal/Abdomen Exam: soft, normal bowel sounds, No tenderness, No distention Extremity Exam: normal inspection, No pedal edema, No swelling OBJECTIVE DATA Vital Signs: Vital Signs - 24 hr Temp Pulse Resp BP Pulse Ox 03/26/19 16:00 90 03/26/19 12:00 98.4 F 92 H 18 143/92 94 L 03/26/19 07:55 97.6 F 92 H 18 131/91 97 03/26/19 04:00 97.7 F 89 20 128/83 94 L 03/26/19 00:01 82 03/26/19 00:00 97.4 F 82 20 147/81 95 03/25/19 20:00 98.3 F 99 H 23 135/79 95 Oxygen-Last 24 hours O2 Percentage 2 Liters = 28% Pain Assessment - Last Documented Pain Intensity 0 Pain Scale Used 0-10 Pain Scale Intake and Output: Intake & Output 03/24/19 03/25/19 03/26/19 03/27/19 11:59 11:59 11:59 11:59 Intake Total 1036 Output Total 1200 Balance -164 Weight 127.459 kg 128.4 kg Lab Results: Lab Results-Last 24 Hours 03/25/19 03/25/19 03/25/19 Range/Units 00:15 00:15 20:23 WBC (4.0-10.5) K/mm3 RBC (4.1-5.4) M/mm3 Hgb (12.0-16.0) gm/dl Hct (35-47) % MCV (78-100) fl MCH (26-32) pg MCHC (32-36) g/dl RDW (11.5-14.0) % Plt Count (150-450) K/mm3 MPV (6-9.5) fl APTT 51.4 H (25.3-37.0) SECONDS Sodium (137-145) mmol/L Potassium (3.5-5.1) mmol/L Chloride (98-107) mmol/L Carbon Dioxide (22-30) mmol/L Anion Gap (5-15) MEQ/L BUN (7-17) mg/dL Creatinine (0.52-1.04) mg/dL Estimated GFR ML/MIN Glucose (74-106) mg/dL Calcium (8.4-10.2) mg/dL Troponin I < 0.012 < 0.012 (0.000-0.034) ng/mL 03/25/19 03/26/19 03/26/19 Range/Units 20:23 04:15 04:15 WBC 5.7 (4.0-10.5) K/mm3 RBC 3.68 L (4.1-5.4) M/mm3 Hgb 9.7 L (12.0-16.0) gm/dl Hct 31.5 L (35-47) % MCV 85.6 (78-100) fl MCH 26.3 (26-32) pg MCHC 30.8 L (32-36) g/dl RDW 14.8 H (11.5-14.0) % Plt Count 238 (150-450) K/mm3 MPV 10.3 H (6-9.5) fl APTT 38.6 H (25.3-37.0) SECONDS Sodium 141 (137-145) mmol/L Potassium 4.2 (3.5-5.1) mmol/L Chloride 104 (98-107) mmol/L Carbon Dioxide 28 (22-30) mmol/L Anion Gap 13.6 (5-15) MEQ/L BUN 14 (7-17) mg/dL Creatinine 0.67 (0.52-1.04) mg/dL Estimated GFR > 60.0 ML/MIN Glucose 111 H (74-106) mg/dL Calcium 9.1 (8.4-10.2) mg/dL Troponin I (0.000-0.034) ng/mL 03/26/19 Range/Units 04:15 WBC (4.0-10.5) K/mm3 RBC (4.1-5.4) M/mm3 Hgb (12.0-16.0) gm/dl Hct (35-47) % MCV (78-100) fl MCH (26-32) pg MCHC (32-36) g/dl RDW (11.5-14.0) % Plt Count (150-450) K/mm3 MPV (6-9.5) fl APTT 47.7 H (25.3-37.0) SECONDS Sodium (137-145) mmol/L Potassium (3.5-5.1) mmol/L Chloride (98-107) mmol/L Carbon Dioxide (22-30) mmol/L Anion Gap (5-15) MEQ/L BUN (7-17) mg/dL Creatinine (0.52-1.04) mg/dL Estimated GFR ML/MIN Glucose (74-106) mg/dL Calcium (8.4-10.2) mg/dL Troponin I (0.000-0.034) ng/mL Radiology Exams: Radiology Procedures Category Date Time Status ECHO W/2D AND DOPPLER [US] Stat Exams 03/25/19 14:30 Taken ULTRASOUND BILATERAL LOWER EXTREMITY [VENOUS BILATERAL Exams 03/25/19 15:49 Completed EXTREMITY] [US] Stat Assessment/Plan (1) Pulmonary embolism, bilateral Current Visit: Yes Status: Acute Assessment & Plan: Will continue with current management on heparin. If patient continues to be stable will consider discharge tomorrow possibly the following day on Eliquis and aspirin and discontinue plavix. Code(s): I26.99 - OTHER PULMONARY EMBOLISM WITHOUT ACUTE COR PULMONALE (2) Hx of hysterectomy Current Visit: Yes Status: Acute Assessment & Plan: NO signs of bleeding s/p 3 weeks following hysterectomy and patient is hemodynamically stable. Will continue to monitor for signs of bleeding and monitor VS Code(s): Z90.710 - ACQUIRED ABSENCE OF BOTH CERVIX AND UTERUS (3) Hypertension Current Visit: No Status: Acute Qualifiers: Hypertension type: essential hypertension Qualified Code(s): I10 - Essential (primary) hypertension Assessment & Plan: Will continue with routine home meds for HTN. BP has been elevated while inpatient. Will continue to monitor Code(s): I10 - ESSENTIAL (PRIMARY) HYPERTENSION
[2019-03-26] MEDS: Colace 100 MG PO SCH (21:42)
--- NOTE | 2019-03-27 07:36 | PCM.DS ---
Discharge Summary Date of Admission: 03/25/19 12:40 Admitting Physician: LACY CORDOVA Primary Care Provider: LACY CORDOVA Allergies Allergies adhesive Allergy (Intermediate, Verified 03/25/19 11:26) Rash latex Allergy (Intermediate, Verified 03/25/19 11:26) Rash Burning where latex touches Penicillins Allergy (Intermediate, Verified 03/25/19 11:26) Rash Hospital Summary - Vitals & Intake/Output Vital Signs: Vital Signs Temperature 98.5 F 03/27/19 04:00 Pulse Rate 91 H 03/27/19 04:00 Respiratory Rate 20 03/27/19 04:00 Blood Pressure 109/61 03/27/19 04:00 O2 Sat by Pulse Oximetry 97 03/27/19 04:00 Oxygen-Last Documented O2 Percentage 2 Liters = 28% Intake & Output: Intake & Output 03/24/19 03/25/19 03/26/19 03/27/19 11:59 11:59 11:59 11:59 Intake Total 1036 921 Output Total 1200 1100 Balance -164 -179 Weight 127.459 kg 128.4 kg - Lab Result Diagrams: 03/26/19 04:15 03/26/19 04:15 Lab Results-Last 24 Hrs: Lab Results-Last 24 Hours 03/27/19 Range/Units 04:00 APTT 43.1 H (25.3-37.0) SECONDS - Radiology Exams Ordered Rad Exams-Entire Visit: Radiology Procedures Category Date Time Status ECHO W/2D AND DOPPLER [US] Stat Exams 03/25/19 14:30 Taken ULTRASOUND BILATERAL LOWER EXTREMITY [VENOUS BILATERAL Exams 03/25/19 15:49 Completed EXTREMITY] [US] Stat Discharge Exam General Appearance: no apparent distress Final Diagnosis/Problem List - Final Discharge Diagnosis/Problem (1) Pulmonary embolism, bilateral Current Visit: Yes Status: Acute Code(s): I26.99 - OTHER PULMONARY EMBOLISM WITHOUT ACUTE COR PULMONALE (2) Hx of hysterectomy Current Visit: Yes Status: Acute Code(s): Z90.710 - ACQUIRED ABSENCE OF BOTH CERVIX AND UTERUS (3) Hypertension Current Visit: No Status: Acute Code(s): I10 - ESSENTIAL (PRIMARY) HYPERTENSION - Discharge Disposition: Home, Self-Care Condition: Good Prescriptions: No Action Clopidogrel Bisulfate 75 mg [PLAVIX 75 MG Tablet] 75 mg PO UD Rosuvastatin Calcium [Crestor] 10 mg PO DAILY Aspirin [Aspirin EC] 81 mg PO DAILY Amlodipine Besylate 5 mg PO DAILY Docusate Sodium 100 mg [Colace 100 MG] 100 mg PO HS Follow up with: LACY CORDOVA [Primary Care Provider] - 1 Week
[2019-03-27 07:56] LABS: Absolute Neutrophil Ct (ANC) 3.85 (1.4-6.9); Basophil (Absolute #) 0.06 (0-0.4); Eosinophil % 6.2 % (0.00-5.0); Eosinophil (Absolute #) 0.38 (0-0.5); Hematocrit 33.9 % (35-47); Hemoglobin 10.4 gm/dl (12.0-16.0); Lymphocyte (Absolute #) 1.24 (1.0-4.6); Lymphocytes % 20.2 % (24.0-44.0); Mean Cell Volume 84.5 fl (78-100); Mean Corpuscular Hemoglobin 25.9 pg (26-32); Mean Corpuscular Hgb Concent. 30.7 g/dl (32-36); Mean Platelet Volume 9.6 fl (6-9.5); Monocyte (Absolute #) 0.62 (0.0-1.3); Monocytes % 10.1 % (0.0-12.0); Neutrophil % 62.5 % (36.0-66.0); Platelet Count 243 K/mm3 (150-450); Red Blood Count 4.01 M/mm3 (4.1-5.4); Red Cell Distribution Width 14.8 % (11.5-14.0); White Blood Count 6.2 K/mm3 (4.0-10.5)
[2019-03-27 08:11] LABS: INR 1.11 (0.8-3.0); PROTIME 12.6 SECONDS (9.95-12.35)
[2019-03-27 08:16] LABS: ANION GAP 15.3 MEQ/L (5-15); BLOOD UREA NITROGEN 16 mg/dL (7-17); CHLORIDE 104 mmol/L (98-107); Calcium 9.5 mg/dL (8.4-10.2); Carbon Dioxide 27 mmol/L (22-30); Creatinine 1 0.68 mg/dL (0.52-1.04); Glucose 111 mg/dL (74-106); Potassium 4.2 mmol/L (3.5-5.1); SODIUM 142 mmol/L (137-145)
[2019-03-27] MEDS: ZOCOR 20MG PO SCH (09:51)
[2019-03-27] MEDS: NORVASC 5 MG PO SCH (09:51)
[2019-03-27] MEDS ORDERED: ELIQUIS 2.5 MG TABLET PO ONE (12:00)
[2019-03-27 13:28] VITALS: BP 140/83; PULSE 84; O2SAT 96
--- NOTE | 2019-03-28 11:41 | ECHO ---
Transthoracic echocardiographic examination and color Doppler was done on 03/25/2019. INDICATION: Shortness of breath, pulmonary embolism. IMPRESSION: 1) NO REGIONAL WALL MOTION ABNORMALITY. ESTIMATED GLOBAL LEFT VENTRICULAR EJECTION FRACTION BETWEEN 50 AND 60%. 2) TRACE MITRAL REGURGITATION. 3) TRACE TRICUSPID REGURGITATION. RIGHT VENTRICULAR SYSTOLIC PRESSURE OF 40 MM OF MERCURY. 4) LEFT VENTRICULAR HYPERTROPHY. The left ventricle is visualized and demonstrated adequate motion of all the segments. Estimated global left ventricular ejection fraction between 50 and 60%. There is mild left ventricular hypertrophy. The mitral valve is seen and this opens adequately. There is trace mitral regurgitation. Left atrium is normal. The aortic valve opens adequately. There is no significant gradient across the left ventricular outflow tract. The right side chambers are within normal. There is normal right ventricular contractility. There is trace tricuspid regurgitation with right ventricular systolic pressure of 40 mm of Mercury.
== END 2019-03-27 14:25 | disposition home or self-care (01) | DRG 176 ==
LOC: ED 11:10 → ICU 12:40
PROVIDERS: ADMIT Family Medicine; ATTEND Family Medicine
DX: I26.99 Other pulmonary embolism without acute cor pulmonale (principal); I10 Essential (primary) hypertension; J44.9 Chronic obstructive pulmonary disease, unspecified; I25.2 Old myocardial infarction; L98.9 Disorder of the skin and subcutaneous tissue, unspecified; Z79.899 Other long term (current) drug therapy; Z98.890 Other specified postprocedural states; Z90.710 Acquired absence of both cervix and uterus; Z85.42 Personal history of malignant neoplasm of other parts of uterus; Z79.01 Long term (current) use of anticoagulants; E11.9 Type 2 diabetes mellitus without complications
CPT/HCPCS: 36000; 36415; 36600; 80048; 80053; 81001; 82375; 82803; 84484; 85025; 85027; 85610; 85730; 93005; 93041; 93306; 93970; 94760; 96360; 96365; 96367; 96374; 99285; 99291; J1644; A9270-GY

== ENCOUNTER 2020-09-26 19:15 | Emergency (ER) | payer MEDICARE ==
[2020-09-26 19:25] VITALS: BP 124/104; PULSE 106; O2SAT 96
[2020-09-26] MEDS ORDERED: Ativan 1 MG PO ONE (20:00)
--- NOTE | 2020-09-26 20:20 | ERPHSYRPT ---
- History of Present Illness Time Seen by Provider: 09/26/20 19:30 Patient Subjective Stated Complaint: pt c/o high blood pressure 192/102 with at home machine. Pt started new medicine yesterday. Triage Nursing Assessment: pt c/o high blood pressure at home 192/102 with her machine. Pt started new medicine Lenvima 20mg yesterday. Pt states, "b/p has been up and down all day". Pt has anxiety issues. Physician History: 69 years old female with history of cancer currently on chemo recently started on a new medication by oncology presented in the ER with chief complaint of elevated blood pressure. Patient reports her blood pressure was like 190s this morning and 180s prior to arrival despite taking her routine blood pressure medications. Patient reports she does have anxiety and has been dealing with a lot of things lately which is stressing her out. She does not have anything for anxiety at home but wants something to take. She denies any headache, dizziness or lightheadedness, chest pain palpitations or shortness of breath with elevated blood pressure. No blurry vision. No numbness tingling or focal weakness. Currently her blood pressure is in 120s without any symptoms. Patient is very anxious and wants some relief far her anxiety. Patient thinks with elevated blood pressure she was feeling as if she was having a panic attack with tremors, restless etc. Timing/Duration: today, gradual onset, improved Severity: moderate Modifying Factors: Improves With: nothing Associated Symptoms: denies symptoms Allergies/Adverse Reactions: adhesive Allergy (Intermediate, Verified 09/26/20 19:36) Rash latex Allergy (Intermediate, Verified 09/26/20 19:36) Rash Burning where latex touches Penicillins Allergy (Intermediate, Verified 09/26/20 19:36) Rash Home Medications: Aspirin [Aspirin EC] 81 mg PO DAILY 06/07/13 [History] Rosuvastatin Calcium [Crestor] 10 mg PO DAILY 06/07/13 [History] Amlodipine Besylate 5 mg PO DAILY 02/01/19 [History] Apixaban [Eliquis] 2.5 mg PO BID 09/26/20 [History] Lenvatinib Mesylate [Lenvima] 20 mg PO DAILY 09/26/20 [History] Hx Tetanus, Diphtheria Vaccination/Date Given: Yes Hx Influenza Vaccination/Date Given: No Hx Pneumococcal Vaccination/Date Given: Yes Immunizations Up to Date: Yes Travel Risk - International Travel Have you traveled outside of the country in past 3 weeks: No - Coronavirus Screening Are you exhibiting any of the following symptoms?: No Close contact with a COVID-19 positive Pt in past 14-21 Days: No - Vaccine Status Have you recieved a Covid-19 vaccination: No - Review of Systems Constitutional: No Symptoms Eyes: No Symptoms Ears, Nose, & Throat: No Symptoms Respiratory: No Symptoms Cardiac: No Symptoms Abdominal/Gastrointestinal: No Symptoms Genitourinary Symptoms: No Symptoms Musculoskeletal: Joint Pain Skin: No Symptoms Neurological: No Symptoms Psychological: Anxiety Endocrine: No Symptoms Hematologic/Lymphatic: No Symptoms Immunological/Allergic: No Symptoms - Past Medical History Pertinent Past Medical History: Yes Neurological History: Migraines, Peripheral Neuropathy ENT History: No Pertinent History Cardiac History: Congestive Heart Failure, Hypertension, Myocardial Infarction ([place]), Other Respiratory History: CHF, COPD Endocrine Medical History: Other Musculoskeletal History: Osteoarthritis GI Medical History: No Pertinent History History: No Pertinent History Psycho-Social History: No Pertinent History Female Reproductive Disorders: No Pertinent History Other Medical History: boarderline DMII, L GARFIELD, 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 - Past Surgical History Past Surgical History: Yes Neuro Surgical History: No Pertinent History Cardiac: Angioplasty, Cardiac Catheterization, Cardiac Stent Respiratory: No Pertinent History Gastrointestinal: No Pertinent History Genitourinary: No Pertinent History Musculoskeletal: Joint Replacement Female Surgical History: Tubal Ligation Other Surgical History: Left hip replaced 2007, right hip replacement 2015 - Social History Smoking Status: Never smoker Exposure to second hand smoke: No Drug Use: none Patient Lives Alone: No - Female History Hx Now: No - Nursing Vital Signs Nursing Vital Signs: Initial Vital Signs Temperature 98.0 F 09/26/20 19:16 Pulse Rate 106 H 09/26/20 19:16 Respiratory Rate 20 09/26/20 19:16 Blood Pressure 124/104 09/26/20 19:16 O2 Sat by Pulse Oximetry 96 09/26/20 19:16 Pain Scale Pain Intensity 7 - Physical Exam General Appearance: no apparent distress, alert, anxiety Eye Exam: PERRL/EOMI, eyes nml inspection Ears, Nose, Throat Exam: normal ENT inspection, TMs normal, pharynx normal Neck Exam: normal inspection, non-tender, supple, full range of motion Respiratory Exam: normal breath sounds, lungs clear Cardiovascular Exam: regular rate/rhythm, normal heart sounds Gastrointestinal/Abdomen Exam: soft, normal bowel sounds, No tenderness Back Exam: normal inspection, normal range of motion Extremity Exam: normal inspection, normal range of motion, pelvis stable Neurologic Exam: alert, oriented x 3, 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, 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, normal mood/affect, nml cerebellar function, sensation nml, No motor deficits Skin Exam: normal color SpO2 Interpretation: normal SpO2: 96 O2 Delivery: Room Air Ordered Tests: Medication Summary Discontinued Medications Generic Name Dose Route Start Last Admin Trade Name Patricia PRN Reason Stop Dose Admin Lorazepam 1 mg 09/26/20 20:00 09/26/20 20:32 Ativan 1 Mg PO 09/26/20 20:01 1 mg STAT ONE Administration Lorazepam Confirm 09/26/20 20:31 Ativan 1 Mg Administered 09/26/20 20:32 Dose 1 mg .ROUTE .STK-MED ONE - Progress Progress: improved Progress Note: 09/26/20 she has a stable blood pressure while in the ER throughout stay. Given Ativan, reevaluation feeling much better and relaxed. Offered work-up but she does not want anything. She wants anxiety medication. She does have appointment with her primary care which she is advised to keep it follow-up with her and get some of the anxiety medications. Not symptomatic currently. I think this is reasonable if he does not want work-up. Stable for discharge. - Departure Departure Disposition: Home Clinical Impression: Anxiety Hypertension Qualifiers: Hypertension type: unspecified Qualified Code(s): I10 - Essential (primary) hypertension Condition: Stable Critical Care Time: No Referrals: LACY KOHLER [Primary Care Provider] - (1-2 days for reevaluation) Instructions: High Blood Pressure in Adults, High Blood Pressure Emergencies Additional Instructions: Monitor your blood pressure regularly, keep a log and follow-up with primary care for reevaluation. Continue with your current blood pressure medications. Takes low-salt diet. Return to ER if again have blood pressure more than 160 persistently or have any chest pain palpitations/shortness of breath/headache/dizziness lightheadedness or blurred vision.
[2020-09-26] MEDS ORDERED: Ativan 1 MG ONE (20:31)
== END 2020-09-26 20:50 | disposition home or self-care (01) ==
LOC: ED 19:15
DX: F41.9 Anxiety disorder, unspecified (principal); I10 Essential (primary) hypertension; Z79.899 Other long term (current) drug therapy; G62.9 Polyneuropathy, unspecified; I50.9 Heart failure, unspecified; I25.2 Old myocardial infarction; J44.9 Chronic obstructive pulmonary disease, unspecified; Z85.9 Personal history of malignant neoplasm, unspecified
CPT/HCPCS: 99283; A9270-GY

== ENCOUNTER 2020-11-28 11:01 | Emergency (ER) | payer MEDICARE ==
--- NOTE | 2020-11-28 11:39 | ERPHSYRPT ---
- History of Present Illness Source: patient, other () Exam Limitations: clinical condition Patient Subjective Stated Complaint: shakiness, anxiousness, "cant think," slow to respond Triage Nursing Assessment: pt to ED by EMS with multiple complaints- confusion, shakiness, anxiousness, "cant think." pt states she has been confused for a while now but feels worse than normal. denies pain now, "my head feels weird, heaviness in my R arm, weakness all over." Physician History: 69 yo wf w h/o uterine Ca presents w confusion/lethargy x 1-2 hours. Pt states that she has been confused for several months. She denies focal weakness/N/V/CP/Dyspnea/fever/cough/melena/hematochezia/dysuria/hematuria. Stool has been loose, and she has a very mild posterior LANDEROS. Pt did not get her CV vaccine. Timing/Duration: today (1-2 hours) Severity: mild Character of Deficits: none, general (difuse) Baseline/Normal Cognition: alert oriented x 3 Current Cognition: alert oriented x 3 Baseline Gait: uses walker Associated Symptoms: confusion, fatigue, weakness, No fever, No chills, No loss of consciousness, No nausea, No vomiting, No insomnia, No muscle spasms, No numbness/tingling in legs/feet, No paresthesia, No ringing in ears, No seizures, No slurred speech, No trouble walking Allergies/Adverse Reactions: adhesive Allergy (Intermediate, Verified 09/26/20 19:36) Rash latex Allergy (Intermediate, Verified 09/26/20 19:36) Rash Burning where latex touches Penicillins Allergy (Intermediate, Verified 09/26/20 19:36) Rash Home Medications: Aspirin [Aspirin EC] 81 mg PO DAILY 06/07/13 [History] Rosuvastatin Calcium [Crestor] 10 mg PO DAILY 06/07/13 [History] Amlodipine Besylate 5 mg PO DAILY 02/01/19 [History] Apixaban [Eliquis] 2.5 mg PO BID 09/26/20 [History] Lenvatinib Mesylate [Lenvima] 20 mg PO DAILY 09/26/20 [History] Hx Tetanus, Diphtheria Vaccination/Date Given: Yes Hx Influenza Vaccination/Date Given: No Hx Pneumococcal Vaccination/Date Given: Yes Travel Risk - International Travel Have you traveled outside of the country in past 3 weeks: No - Coronavirus Screening Are you exhibiting any of the following symptoms?: No Close contact with a COVID-19 positive Pt in past 14-21 Days: No - Vaccine Status Have you recieved a Covid-19 vaccination: No - Review of Systems Constitutional: No Symptoms, Lethargy Eyes: No Symptoms Ears, Nose, & Throat: No Symptoms Respiratory: No Symptoms Cardiac: No Symptoms Abdominal/Gastrointestinal: No Symptoms Genitourinary Symptoms: No Symptoms Musculoskeletal: No Symptoms Skin: No Symptoms Neurological: No Symptoms, No Focal Weakness Psychological: No Symptoms Endocrine: No Symptoms Hematologic/Lymphatic: No Symptoms Immunological/Allergic: No Symptoms - Past Medical History Pertinent Past Medical History: Yes Neurological History: Migraines, Peripheral Neuropathy ENT History: No Pertinent History Cardiac History: Congestive Heart Failure, Hypertension, Myocardial Infarction ([place]), Other Respiratory History: CHF, COPD Endocrine Medical History: Other Musculoskeletal History: Osteoarthritis GI Medical History: No Pertinent History History: No Pertinent History Psycho-Social History: Anxiety Female Reproductive Disorders: Ovarian Cancer, Uterine Cancer Other Medical History: boarderline DMII, L GARFIELD, 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 - Past Surgical History Past Surgical History: Yes Neuro Surgical History: No Pertinent History Cardiac: Angioplasty, Cardiac Catheterization, Cardiac Stent Respiratory: No Pertinent History Gastrointestinal: No Pertinent History Genitourinary: No Pertinent History Musculoskeletal: Joint Replacement Female Surgical History: Hysterectomy, Tubal Ligation Other Surgical History: Left hip replaced 2007, right hip replacement 2015 - Social History Smoking Status: Never smoker Exposure to second hand smoke: No Drug Use: none Patient Lives Alone: No Significant Family History: no pertinent family hx - Female History Hx Now: No (hysterectomy) - Nursing Vital Signs Nursing Vital Signs: Initial Vital Signs Temperature 97.7 F 11/28/20 11:05 Pulse Rate 105 H 11/28/20 11:05 Respiratory Rate 18 11/28/20 11:05 Blood Pressure 137/74 11/28/20 11:05 O2 Sat by Pulse Oximetry 96 11/28/20 11:05 Pain Scale Pain Intensity 0 Tachy/Mild hypertensive - Soham Coma Scale Best Eye Response ([place]): (4) open spontaneously Best Verbal Response (Soham): (5) oriented Best Motor Response ([place]): (6) obeys commands Soham Total: 15 - Physical Exam General Appearance: no apparent distress, alert, anxiety Eye Exam: bilateral eye: normal inspection, PERRL, EOMI Ears, Nose, Throat Exam: normal ENT inspection, TMs normal, pharynx normal, moist mucous membranes Neck Exam: normal inspection, non-tender, supple, full range of motion, No meningismus, No mass, No Brudzinski, No Kernig's, No carotid bruit Respiratory: normal breath sounds, lungs clear, airway intact, No respiratory distress Cardiovascular: murmur (3/6 SHI), tachycardia Gastrointestinal: soft, normal bowel sounds, No tenderness (Morbidly obese) Back Exam: normal inspection, normal range of motion, No CVA tenderness Extremity Exam: normal inspection, normal range of motion Peripheral Pulses: carotid (R): 2+, carotid (L): 2+ Mental Status: alert, oriented x 3, 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, 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 Exam: normal hearing, normal speech, PERRL, No abnormal eye position, No abnormal gag reflex Coordination/Gait: normal cerebellar function, negative Romberg's sign Motor/Sensory: no motor deficit (Symmetrical weakness), negative Babinski's sign DTR: bicep (R): 2+, bicep (L): 2+ Skin Exam: normal color, warm, dry, No rash SpO2 Interpretation: normal SpO2: 96 O2 Delivery: Room Air - Course Nursing assessment & vital signs reviewed: Yes EKG Interpreted by Me: RATE (Sinus tach/Old inferior infarct/Low voltage/Normal QT-QTc/No acute ST changes) - Radiology Exams Chest X-ray Interpretation: Discussed w/ radiologist (NAD per Rad) - CT Exams Head CT Interpretation: Discussed w/radiologist (Old infarcts R posterior parietal lobe-L thalmus) Ordered Tests: Active Orders 24 hr Category Date Time Status Substation Operator STAT Care 11/28/20 11:27 Completed EKG-ER Only STAT Care 11/28/20 11:23 Completed Womack [Catheter-[facility]us Womack] STAT Care 11/28/20 11:27 Completed IV Insertion STAT Care 11/28/20 11:23 Completed NPO (ED) STAT Care 11/28/20 11:23 Completed CHEST 1 VIEW (PORTABLE) Stat Exams 11/28/20 11:24 Completed HEAD W/WO CONTRAST [CT] Stat Exams 11/28/20 11:22 Completed CBC W DIFF Stat Lab 11/28/20 11:23 Completed CMP Stat Lab 11/28/20 11:35 Completed CULTURE,URINE Stat Lab 11/28/20 11:32 Received Lactic Acid Stat Lab 11/28/20 11:35 Completed TROPONIN Q3H Lab 11/28/20 11:35 Completed UA W/RFX UR CULTURE Stat Lab 11/28/20 11:32 Completed Lab/Rad Data: Laboratory Result Diagrams 11/28/20 11:23 11/28/20 11:35 Laboratory Results 11/28/20 11/28/20 11/28/20 Range/Units 11:35 11:35 11:35 WBC (4.0-10.5) K/mm3 RBC (4.1-5.4) M/mm3 Hgb (12.0-16.0) gm/dl Hct (35-47) % MCV (78-100) fl MCH (26-32) pg MCHC (32-36) g/dl RDW (11.5-14.0) % Plt Count (150-450) K/mm3 MPV (7.5-11.0) fl Gran % (36.0-66.0) % Eos # (Auto) (0-0.5) Absolute Lymphs (auto) (1.0-4.6) Absolute Monos (auto) (0.0-1.3) Lymphocytes % (24.0-44.0) % Monocytes % (0.0-12.0) % Eosinophils % (0.00-5.0) % Basophils % (0.0-0.4) % Absolute Granulocytes (1.4-6.9) Basophils # (0-0.4) Sodium 140 (137-145) mmol/L Potassium 4.5 (3.5-5.1) mmol/L Chloride 106 (98-107) mmol/L Carbon Dioxide 23 (22-30) mmol/L Anion Gap 15.8 H (5-15) MEQ/L BUN 11 (7-17) mg/dL Creatinine 0.66 (0.52-1.04) mg/dL Estimated GFR > 60.0 ML/MIN Glucose 112 H (74-106) mg/dL Lactic Acid 1.1 (0.4-2.0) Calcium 8.0 L (8.4-10.2) mg/dL Total Bilirubin 0.40 (0.2-1.3) mg/dL AST 25 (14-36) U/L ALT 27 (0-35) U/L Alkaline Phosphatase 120 (38-126) U/L Troponin I < 0.012 (0.000-0.034) ng/mL Serum Total Protein 7.8 (6.3-8.2) g/dL Albumin 4.7 (3.5-5.0) g/dL Urine Color (YELLOW) Urine Appearance (CLEAR) Urine pH (5-6) Ur Specific [place] (1.005-1.025) Urine Protein (Negative) Urine Ketones (NEGATIVE) Urine Blood (0-5) Ced/ul Urine Nitrite (NEGATIVE) Urine Bilirubin (NEGATIVE) Urine Urobilinogen (0-1) mg/dL Ur Leukocyte Esterase (NEGATIVE) Urine WBC (Auto) (0-5) /HPF Urine RBC (Auto) (0-2) /HPF U Epithel Cells (Auto) (FEW) /HPF Urine Bacteria (Auto) (NEGATIVE) /HPF Urine Culture Reflexed (NO) Urine Glucose (NEGATIVE) mg/dL 11/28/20 11/28/20 Range/Units 11:32 11:23 WBC 7.5 (4.0-10.5) K/mm3 RBC 4.54 (4.1-5.4) M/mm3 Hgb 13.4 (12.0-16.0) gm/dl Hct 42.3 (35-47) % MCV 93.2 (78-100) fl MCH 29.5 (26-32) pg MCHC 31.7 L (32-36) g/dl RDW 15.0 H (11.5-14.0) % Plt Count 200 (150-450) K/mm3 MPV 9.2 (7.5-11.0) fl Gran % 77.6 H (36.0-66.0) % Eos # (Auto) 0.07 (0-0.5) Absolute Lymphs (auto) 0.92 L (1.0-4.6) Absolute Monos (auto) 0.68 (0.0-1.3) Lymphocytes % 12.2 L (24.0-44.0) % Monocytes % 9.0 (0.0-12.0) % Eosinophils % 0.9 (0.00-5.0) % Basophils % 0.3 (0.0-0.4) % Absolute Granulocytes 5.85 (1.4-6.9) Basophils # 0.02 (0-0.4) Sodium (137-145) mmol/L Potassium (3.5-5.1) mmol/L Chloride (98-107) mmol/L Carbon Dioxide (22-30) mmol/L Anion Gap (5-15) MEQ/L BUN (7-17) mg/dL Creatinine (0.52-1.04) mg/dL Estimated GFR ML/MIN Glucose (74-106) mg/dL Lactic Acid (0.4-2.0) Calcium (8.4-10.2) mg/dL Total Bilirubin (0.2-1.3) mg/dL AST (14-36) U/L ALT (0-35) U/L Alkaline Phosphatase (38-126) U/L Troponin I (0.000-0.034) ng/mL Serum Total Protein (6.3-8.2) g/dL Albumin (3.5-5.0) g/dL Urine Color COLORLESS (YELLOW) Urine Appearance CLEAR (CLEAR) Urine pH 7.0 (5-6) Ur Specific [place] 1.002 (1.005-1.025) Urine Protein NEGATIVE (Negative) Urine Ketones NEGATIVE (NEGATIVE) Urine Blood NEGATIVE (0-5) Ced/ul Urine Nitrite NEGATIVE (NEGATIVE) Urine Bilirubin NEGATIVE (NEGATIVE) Urine Urobilinogen NEGATIVE (0-1) mg/dL Ur Leukocyte Esterase TRACE (NEGATIVE) Urine WBC (Auto) 0-2 (0-5) /HPF Urine RBC (Auto) NONE (0-2) /HPF U Epithel Cells (Auto) NONE (FEW) /HPF Urine Bacteria (Auto) NONE (NEGATIVE) /HPF Urine Culture Reflexed NO (NO) Urine Glucose NEGATIVE (NEGATIVE) mg/dL - Progress Progress: improved Progress Note: 11/28/20 19:20 Pt became less anxious during stay. She took probably Buspar at home before transfer to ER. Pt had no focal weakness/chest pain/shortness of breath during her stay. Counseled pt/family regarding: lab results, diagnosis, need for follow-up, rad results - Departure Departure Disposition: Home Clinical Impression: Anxiety Condition: Stable Critical Care Time: No Referrals: LACY KOHLER [Primary Care Provider] - Instructions: Anxiety, Adult (DC) Additional Instructions: Follow up with your family MD or oncologist tomorrow Return to ER for focal weakness/Temperature greater than 100.5/Increasing confusion
[2020-11-28 11:41] LABS: Absolute Neutrophil Ct (ANC) 5.85 (1.4-6.9); BASOPHIL % 0.3 % (0.0-0.4); Basophil (Absolute #) 0.02 (0-0.4); Eosinophil % 0.9 % (0.00-5.0); Eosinophil (Absolute #) 0.07 (0-0.5); Hematocrit 42.3 % (35-47); Hemoglobin 13.4 gm/dl (12.0-16.0); Lymphocyte (Absolute #) 0.92 (1.0-4.6); Lymphocytes % 12.2 % (24.0-44.0); Mean Cell Volume 93.2 fl (78-100); Mean Corpuscular Hemoglobin 29.5 pg (26-32); Mean Corpuscular Hgb Concent. 31.7 g/dl (32-36); Mean Platelet Volume 9.2 fl (7.5-11.0); Monocyte (Absolute #) 0.68 (0.0-1.3); Neutrophil % 77.6 % (36.0-66.0); Platelet Count 200 K/mm3 (150-450); Red Blood Count 4.54 M/mm3 (4.1-5.4); White Blood Count 7.5 K/mm3 (4.0-10.5)
[2020-11-28 11:44] LABS: Appearance CLEAR (CLEAR); Bilirubin NEGATIVE (NEGATIVE); Blood NEGATIVE Ery/ul (0-5); Glucose NEGATIVE (NEGATIVE); Ketones NEGATIVE (NEGATIVE); Leukocyte Esterase TRACE (NEGATIVE); Nitrite NEGATIVE (NEGATIVE); Protein,Urine Dip NEGATIVE (Negative); Specific Gravity 1.002 (1.005-1.025); Urobilinogen NEGATIVE mg/dL (0-1); WBC 0-2 /HPF (0-5)
[2020-11-28 11:58] LABS: ALBUMIN 4.7 g/dL (3.5-5.0); ALKALINE PHOSPHATASE 120 U/L (38-126); ANION GAP 15.8 MEQ/L (5-15); BLOOD UREA NITROGEN 11 mg/dL (7-17); CHLORIDE 106 mmol/L (98-107); Carbon Dioxide 23 mmol/L (22-30); Creatinine 1 0.66 mg/dL (0.52-1.04); EST GLOMERULAR FILTRATION RATE > 60.0 ML/MIN; Glucose 112 mg/dL (74-106); Potassium 4.5 mmol/L (3.5-5.1); SGOT/AST 25 U/L (14-36); SGPT/ALT 27 U/L (0-35); SODIUM 140 mmol/L (137-145); Total Protein 7.8 g/dL (6.3-8.2)
--- NOTE | 2020-11-28 12:00 | XRAY ---
Indication: Lethargy. Comparison: August 15, 2019. Portable chest underinflated today accentuating cardiopulmonary structures. No focal infiltrate, consolidation, or large effusion. Stable CT proven small hiatal hernia and left Port-A-Cath. Bony thorax intact again with mild degenerative changes. Impression: Nonacute underinflated chest with chronic features.
[2020-11-28 12:04] VITALS: PULSE 96
--- NOTE | 2020-11-28 12:57 | XRAY ---
Indication: Mental status change. Multiple contiguous axial images obtained through the head prior to and following 80 cc Isovue 370 contrast as ordered. Comparison: None Age-appropriate global atrophy and mild/moderate periventricular degenerative micro-ischemia bilaterally. Posterior right parietal lobe demonstrates small focus of old infarct. Smaller 8 mm focus old infarct left thalamus. No acute intracranial hemorrhage, abnormal extra-axial fluid collection, or mass effect. Postcontrast images are negative for abnormal enhancing intra-or extra-axial mass. Fourth ventricle is midline without hydrocephalus. Bony calvarium intact. Visualized paranasal sinuses and mastoid air cells are clear. Impression: 1. Atrophy and degenerative micro-ischemia within normal limits for patient's age. 2. Small focus old infarct right posterior parietal lobe and subcentimeter old infarct left thalamus. 3. No acute intracranial abnormalities. 3. Negative contrast exam.
[2020-11-28 13:10] VITALS: BP 110/54
[2020-11-28 13:22] VITALS: O2SAT 96
== END 2020-11-28 13:37 | disposition home or self-care (01) ==
LOC: ED 11:01
DX: F41.9 Anxiety disorder, unspecified (principal); Q82.8 Other specified congenital malformations of skin; Z79.899 Other long term (current) drug therapy
CPT/HCPCS: 36000; 36415; 51702; 70470; 71045; 80053; 81001; 83605; 84484; 85025; 87086; 93005; 93041; 99284

== ENCOUNTER 2022-03-07 09:32 | Observation (INO) | payer MEDICARE ==
[2022-03-07 10:25] LABS: Absolute Neutrophil Ct (ANC) 10.35 x10^3/uL (1.4-6.9); Basophil (Absolute #) 0.02 x10^3/uL (0-0.4); Eosinophil (Absolute #) 0 x10^3/uL (0-0.5); Hematocrit 44.5 % (35-47); Hemoglobin 14.8 g/dL (12.0-16.0); Lymphocyte (Absolute #) 0.68 x10^3/uL (1.0-4.6); Lymphocytes % 5.7 % (24.0-44.0); Mean Cell Volume 97.6 fL (78-100); Mean Corpuscular Hemoglobin 32.5 pg (26-32); Mean Corpuscular Hgb Concent. 33.3 g/dL (32-36); Mean Platelet Volume 9.2 fL (7.5-11.0); Monocyte (Absolute #) 0.74 x10^3/uL (0.0-1.3); Monocytes % 6.2 % (0.0-12.0); Neutrophil % 86.8 % (36.0-66.0); Platelet Count 212 x10^3/uL (150-450); Red Blood Count 4.56 x10^6/uL (4.1-5.4); Red Cell Distribution Width 23.7 % (11.5-14.0); White Blood Count 11.9 x10^3/uL (4.0-10.5)
[2022-03-07 10:40] LABS: INR 1.07 (0.8-3.0); PROTIME 11.3 SECONDS (9.4-12.5); PTT 25.7 SECONDS (25.1-36.5)
--- NOTE | 2022-03-07 10:43 | ERPHSYRPT ---
- History of Present Illness Source: patient, family Exam Limitations: no limitations Patient Subjective Stated Complaint: C/O coughing up bloody sputum that started this morning. States was started on xarelto yesterday due to a blood clot in her lung. Denies any pain or SOB. Triage Nursing Assessment: Patient is alert and oriented; voice is hoarse. Some slight tremors noted to BLE. No SOB noted. No cough noted at this time. Oral mucosa is dry. Lungs clear. Physician History: 71 yo wf w h/o uterine ca who was started on Xaralto yesterday after being diagnosed w a PE per her oncologist on a routine CT presents w mild hemoptysis. Pt denies chest pain/dyspnea/melena/hematochezia/bleeding from gums at this time. She has had a cough for several days but denies fever/coryza. Daughter states that pt has been "weak" and not eating. Timing/Duration: today Severity: mild Modifying Factors: Improves With: nothing Associated Symptoms: cough, loss of appetite, malaise, weakness, No nausea, No vomiting, No abdominal pain, No shortness of breath, No heartburn, No diaphoresis, No chills, No chest pain, No fever, No headaches, No rash, No synco pe, No seizure Allergies/Adverse Reactions: adhesive Allergy (Intermediate, Verified 03/07/22 09:36) Rash latex Allergy (Intermediate, Verified 03/07/22 09:36) Rash Burning where latex touches Penicillins Allergy (Intermediate, Verified 03/07/22 09:36) Rash Home Medications: Rosuvastatin Calcium [Crestor] 10 mg PO HS 06/07/13 [History] Amlodipine Besylate 10 mg PO DAILY 02/01/19 [History] Fluoxetine HCl 20 mg [Prozac 20 MG] 40 mg PO DAILY 03/07/22 [History] Rivaroxaban 10 mg Tablet [Xarelto 10 mg Tablet] 15 mg PO DAILY 03/07/22 [History] dexAMETHasone [Dexamethasone] 4 mg PO BID 03/07/22 [History] Hx Tetanus, Diphtheria Vaccination/Date Given: Yes Hx Influenza Vaccination/Date Given: No Hx Pneumococcal Vaccination/Date Given: Yes Immunizations Up to Date: Yes Travel Risk - International Travel Have you traveled outside of the country in past 3 weeks: No - Coronavirus Screening Are you exhibiting any of the following symptoms?: No Close contact with a COVID-19 positive Pt in past 14-21 Days: No - Vaccine Status Have you recieved a Covid-19 vaccination: No - Review of Systems Constitutional: No Symptoms, Fatigue, Malaise, Weakness Eyes: No Symptoms Ears, Nose, & Throat: No Symptoms Respiratory: No Symptoms Cardiac: No Symptoms Abdominal/Gastrointestinal: No Symptoms Genitourinary Symptoms: No Symptoms Musculoskeletal: No Symptoms Skin: No Symptoms Neurological: No Symptoms Psychological: No Symptoms Endocrine: No Symptoms Hematologic/Lymphatic: No Symptoms Immunological/Allergic: No Symptoms - Past Medical History Pertinent Past Medical History: Yes Neurological History: Migraines, Peripheral Neuropathy ENT History: No Pertinent History Cardiac History: Congestive Heart Failure, Hypertension, Myocardial Infarction ([place]), Other Respiratory History: CHF, COPD Endocrine Medical History: Diabetes Type II, Other Musculoskeletal History: Osteoarthritis GI Medical History: No Pertinent History History: No Pertinent History Psycho-Social History: Anxiety Female Reproductive Disorders: Ovarian Cancer, Uterine Cancer Other Medical History: L GARFIELD, 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 - Past Surgical History Past Surgical History: Yes Neuro Surgical History: No Pertinent History Cardiac: Angioplasty, Cardiac Catheterization, Cardiac Stent Respiratory: No Pertinent History Gastrointestinal: No Pertinent History Genitourinary: No Pertinent History Musculoskeletal: Joint Replacement Female Surgical History: Hysterectomy, Tubal Ligation Other Surgical History: Left hip replaced 2007, right hip replacement 2015 - Social History Smoking Status: Never smoker Exposure to second hand smoke: No Drug Use: none Patient Lives Alone: No Significant Family History: no pertinent family hx - Nursing Vital Signs Nursing Vital Signs: Initial Vital Signs Temperature 98.1 F 03/07/22 09:43 Pulse Rate 113 H 03/07/22 09:43 Respiratory Rate 23 03/07/22 09:43 Blood Pressure 137/76 03/07/22 09:43 O2 Sat by Pulse Oximetry 93 L 03/07/22 09:43 Pain Scale Pain Intensity 0 Tachy/Borderline sats - Physical Exam General Appearance: no apparent distress Eye Exam: PERRL/EOMI, eyes nml inspection Ears, Nose, Throat Exam: normal ENT inspection, TMs normal, pharynx normal, moist mucous membranes Neck Exam: normal inspection, non-tender, supple, full range of motion, No meningismus, No mass, No Brudzinski, No Kernig's Cardiovascular Exam: tachycardia, capillary refill <2 sec, No murmur Gastrointestinal/Abdomen Exam: soft, normal bowel sounds, No tenderness Back Exam: normal inspection, normal range of motion, No CVA tenderness, No vertebral tenderness Extremity Exam: normal inspection, normal range of motion Neurologic Exam: alert, oriented x 3, cooperative, ham trimmer II-XII nml as tested, normal mood/affect, sensation nml Skin Exam: normal color, warm, dry Lymphatic Exam: No adenopathy SpO2 Interpretation: borderline oxygenation SpO2: 93 O2 Delivery: Room Air - Course Nursing assessment & vital signs reviewed: Yes EKG Interpreted by Me: RATE (Sinus tach/[id number]/Old inferior [place]/Borderline prolonged QTc) - CT Exams Chest CT Interpretation: Discussed w/radiologist (Diffuse R lung and tiny LLL nonoccluding PE/Enlarged gallbladder) Ordered Tests: Active Orders 24 hr Category Date Time Status Bedrest with BRP/BSC ROUTINE Activity 03/07/22 17:52 Active Code Status Order ROUTINE Care 03/07/22 17:52 Active EKG-ER Only STAT Care 03/07/22 09:58 Completed IV Care Q6H Care 03/07/22 17:52 Active Intake and Output Q12H Care 03/07/22 17:[address] in Observation ROUTINE Care 03/07/22 17:52 Active Vital Signs Q4H Care 03/07/22 17:52 Active Heart-Healthy Diet Diet 03/07/22 Dinner Active ABDOMINAL-LIMITED [US] Stat Exams 03/07/22 14:59 Completed CHEST 1 VIEW (PORTABLE) Stat Exams 03/07/22 09:57 Taken CHEST WITH CONTRAST [CT] Stat Exams 03/07/22 10:57 Completed CBC W DIFF AM.LAB Lab 03/08/22 04:00 Ordered CBC W DIFF Stat Lab 03/07/22 09:56 Completed CMP AM.LAB Lab 03/08/22 04:00 Ordered CMP Stat Lab 03/07/22 10:25 Completed CULTURE,URINE Stat Lab 03/07/22 11:38 Received Lactic Acid Stat Lab 03/07/22 10:25 Completed NT PRO BNP Stat Lab 03/07/22 10:25 Completed PROTIME WITH INR Stat Lab 03/07/22 10:25 Completed PTT Stat Lab 03/07/22 10:25 Completed TROPONIN Q4H Lab 03/07/22 10:25 Completed TROPONIN Q4H Lab 03/07/22 18:00 Ordered UA W/RFX CULTURE Stat Lab 03/07/22 11:38 Completed Transfer Order Routine Transfer 03/07/22 Completed Medication Summary Generic Name Dose Route Start Last Admin Trade Name Patricia PRN Reason Stop Dose Admin Hydrocodone Bitart/Acetaminophen 1 tablet 03/07/22 20:08 03/07/22 20:13 Hydrocodone/Acetamin 10-325 Mg Tablet PO 03/12/22 20:07 1 tablet Q4H PRN PRN Administration PAIN Dexamethasone 4 mg 03/07/22 22:00 Dexamethasone 4 Mg Tablet PO 04/06/22 21:59 BID GUANAKO Sodium Chloride 1,000 mls @ 100 mls/hr 03/07/22 17:52 03/07/22 18:15 Sodium Chloride 0.9% 1000 Ml IV 04/06/22 17:51 100 mls/hr .Q10H GUANAKO Administration Lorazepam 1 mg 03/07/22 19:46 Lorazepam 1 Mg Tablet PO 04/06/22 19:45 HS PRN PRN INSOMNIA Ondansetron HCl 4 mg 03/07/22 17:52 Ondansetron Hcl 4 Mg/2 Ml Vial IV 04/06/22 17:51 Q6H PRN PRN NAUSEA/VOMITING Pantoprazole Sodium 40 mg 03/08/22 10:00 Pantoprazole 40 Mg Vial IV 04/07/22 09:59 Q24H10 GUANAKO Simvastatin 20 mg 03/07/22 22:00 Simvastatin 20 Mg Tablet PO 04/06/22 21:59 HS GUANAKO Discontinued Medications Generic Name Dose Route Start Last Admin Trade Name Patricia PRN Reason Stop Dose Admin Hydrocodone Bitart/Acetaminophen 1 tablet 03/07/22 11:45 03/07/22 11:47 Hydrocodone/Acetamin 10-325 Mg Tablet PO 03/07/22 11:46 1 tablet STAT ONE Administration Sodium Chloride 1,000 mls @ 999 mls/hr 03/07/22 14:58 03/07/22 16:29 Sodium Chloride 0.9% 1000 Ml IV 03/07/22 15:58 Infused .Q1H1M STA Infusion Sodium Chloride Confirm 03/07/22 15:05 Sodium Chloride 0.9% 1000 Ml Administered 03/07/22 15:06 Dose 1,000 mls @ ud .ROUTE .STK-MED ONE Rivaroxaban 15 mg 03/07/22 22:00 Rivaroxaban 10 Mg Tablet PO 04/06/22 21:59 BID [facility] Lab/Rad Data: Laboratory Result Diagrams 03/07/22 09:56 03/07/22 10:25 Laboratory Results 03/07/22 03/07/22 03/07/22 Range/Units 11:38 10:25 10:25 WBC (4.0-10.5) x10^3/uL RBC (4.1-5.4) x10^6/uL Hgb (12.0-16.0) g/dL Hct (35-47) % MCV (78-100) fL MCH (26-32) pg MCHC (32-36) g/dL RDW (11.5-14.0) % Plt Count (150-450) x10^3/uL MPV (7.5-11.0) fL Gran % (36.0-66.0) % Immature Gran % (Auto) (0.00-0.4) % Nucleat RBC Rel Count (0.00-0.1) % Eos # (Auto) (0-0.5) x10^3/uL Immature Gran # (Auto) (0.00-0.03) x10^3u/L Absolute Lymphs (auto) (1.0-4.6) x10^3/uL Absolute Monos (auto) (0.0-1.3) x10^3/uL Absolute Nucleated RBC (0.00-0.01) x10^3u/L Lymphocytes % (24.0-44.0) % Monocytes % (0.0-12.0) % Eosinophils % (0.00-5.0) % Basophils % (0.0-0.4) % Absolute Granulocytes (1.4-6.9) x10^3/uL Basophils # (0-0.4) x10^3/uL PT (9.4-12.5) SECONDS INR (0.8-3.0) APTT (25.1-36.5) SECONDS Sodium (137-145) mmol/L Potassium (3.5-5.1) mmol/L Chloride (98-107) mmol/L Carbon Dioxide (22-30) mmol/L Anion Gap (5-15) MEQ/L BUN (7-17) mg/dL Creatinine (0.52-1.04) mg/dL Estimated GFR ML/MIN Glucose (74-106) mg/dL Lactic Acid (0.4-2.0) Calcium (8.4-10.2) mg/dL Total Bilirubin (0.2-1.3) mg/dL AST (14-36) U/L ALT (0-35) U/L Alkaline Phosphatase (38-126) U/L Troponin I < 0.012 (0.000-0.034) ng/mL NT-Pro-B Natriuret Pep (0-900) pg/mL Serum Total Protein (6.3-8.2) g/dL Albumin (3.5-5.0) g/dL Urinalys Dipstick Clnc MAIN LAB Urine Color YELLOW (YELLOW) Urine Appearance CLEAR (CLEAR) Urine pH 6.0 (5-6) Ur Specific [place] 1.025 (1.005-1.025) POC Urine Protein Conf TRACE (Negative) Urine Ketones NEGATIVE (NEGATIVE) Urine Nitrite NEGATIVE (NEGATIVE) Urine Bilirubin NEGATIVE (NEGATIVE) Urine Urobilinogen 1 (0-1) mg/dL Urine Leukocytes NEGATIVE (NEGATIVE) Urine WBC (Auto) 3-5 (0-5) /HPF Urine RBC (Auto) 0-2 (0-2) /HPF U Epithel Cells (Auto) NONE (FEW) /HPF Urine Bacteria (Auto) FEW (NEGATIVE) /HPF Urine RBC NEGATIVE (0-5) Ced/ul Urine Mucus (Auto) SLIGHT (NEGATIVE) /HPF Ur Culture Indicated? YES Urine Glucose NEGATIVE (NEGATIVE) mg/dL Influenza Type A Ag NEGATIVE (NEGATIVE) Influenza Type B Ag NEGATIVE (NEGATIVE) RSV (PCR) NEGATIVE (Negative) SARS-CoV-2 (PCR) NEGATIVE (NEGATIVE) Slides for Path Review 03/07/22 03/07/22 03/07/22 Range/Units 10:25 10:25 10:25 WBC (4.0-10.5) x10^3/uL RBC (4.1-5.4) x10^6/uL Hgb (12.0-16.0) g/dL Hct (35-47) % MCV (78-100) fL MCH (26-32) pg MCHC (32-36) g/dL RDW (11.5-14.0) % Plt Count (150-450) x10^3/uL MPV (7.5-11.0) fL Gran % (36.0-66.0) % Immature Gran % (Auto) (0.00-0.4) % Nucleat RBC Rel Count (0.00-0.1) % Eos # (Auto) (0-0.5) x10^3/uL Immature Gran # (Auto) (0.00-0.03) x10^3u/L Absolute Lymphs (auto) (1.0-4.6) x10^3/uL Absolute Monos (auto) (0.0-1.3) x10^3/uL Absolute Nucleated RBC (0.00-0.01) x10^3u/L Lymphocytes % (24.0-44.0) % Monocytes % (0.0-12.0) % Eosinophils % (0.00-5.0) % Basophils % (0.0-0.4) % Absolute Granulocytes (1.4-6.9) x10^3/uL Basophils # (0-0.4) x10^3/uL PT 11.3 (9.4-12.5) SECONDS INR 1.07 (0.8-3.0) APTT 25.7 (25.1-36.5) SECONDS Sodium 136 L (137-145) mmol/L Potassium 4.2 (3.5-5.1) mmol/L Chloride 106 (98-107) mmol/L Carbon Dioxide 21 L (22-30) mmol/L Anion Gap 13.4 (5-15) MEQ/L BUN 38 H (7-17) mg/dL Creatinine 0.69 (0.52-1.04) mg/dL Estimated GFR > 60.0 ML/MIN Glucose 131 H (74-106) mg/dL Lactic Acid 1.8 (0.4-2.0) Calcium 8.7 (8.4-10.2) mg/dL Total Bilirubin 1.10 (0.2-1.3) mg/dL AST 33 (14-36) U/L ALT 39 H (0-35) U/L Alkaline Phosphatase 72 (38-126) U/L Troponin I (0.000-0.034) ng/mL NT-Pro-B Natriuret Pep 199 (0-900) pg/mL Serum Total Protein 7.4 (6.3-8.2) g/dL Albumin 4.3 (3.5-5.0) g/dL Urinalys Dipstick Clnc Urine Color (YELLOW) Urine Appearance (CLEAR) Urine pH (5-6) Ur Specific [place] (1.005-1.025) POC Urine Protein Conf (Negative) Urine Ketones (NEGATIVE) Urine Nitrite (NEGATIVE) Urine Bilirubin (NEGATIVE) Urine Urobilinogen (0-1) mg/dL Urine Leukocytes (NEGATIVE) Urine WBC (Auto) (0-5) /HPF Urine RBC (Auto) (0-2) /HPF U Epithel Cells (Auto) (FEW) /HPF Urine Bacteria (Auto) (NEGATIVE) /HPF Urine RBC (0-5) Ced/ul Urine Mucus (Auto) (NEGATIVE) /HPF Ur Culture Indicated? Urine Glucose (NEGATIVE) mg/dL Influenza Type A Ag (NEGATIVE) Influenza Type B Ag (NEGATIVE) RSV (PCR) (Negative) SARS-CoV-2 (PCR) (NEGATIVE) Slides for Path Review 03/07/22 Range/Units 09:56 WBC 11.9 H (4.0-10.5) x10^3/uL RBC 4.56 (4.1-5.4) x10^6/uL Hgb 14.8 (12.0-16.0) g/dL Hct 44.5 (35-47) % MCV 97.6 (78-100) fL MCH 32.5 H (26-32) pg MCHC 33.3 (32-36) g/dL RDW 23.7 H (11.5-14.0) % Plt Count 212 (150-450) x10^3/uL MPV 9.2 (7.5-11.0) fL Gran % 86.8 H (36.0-66.0) % Immature Gran % (Auto) 1.1 H (0.00-0.4) % Nucleat RBC Rel Count 0.2 H (0.00-0.1) % Eos # (Auto) 0 (0-0.5) x10^3/uL Immature Gran # (Auto) 0.13 H (0.00-0.03) x10^3u/L Absolute Lymphs (auto) 0.68 L (1.0-4.6) x10^3/uL Absolute Monos (auto) 0.74 (0.0-1.3) x10^3/uL Absolute Nucleated RBC 0.02 H (0.00-0.01) x10^3u/L Lymphocytes % 5.7 L (24.0-44.0) % Monocytes % 6.2 (0.0-12.0) % Eosinophils % 0.0 (0.00-5.0) % Basophils % 0.2 (0.0-0.4) % Absolute Granulocytes 10.35 H (1.4-6.9) x10^3/uL Basophils # 0.02 (0-0.4) x10^3/uL PT (9.4-12.5) SECONDS INR (0.8-3.0) APTT (25.1-36.5) SECONDS Sodium (137-145) mmol/L Potassium (3.5-5.1) mmol/L Chloride (98-107) mmol/L Carbon Dioxide (22-30) mmol/L Anion Gap (5-15) MEQ/L BUN (7-17) mg/dL Creatinine (0.52-1.04) mg/dL Estimated GFR ML/MIN Glucose (74-106) mg/dL Lactic Acid (0.4-2.0) Calcium (8.4-10.2) mg/dL Total Bilirubin (0.2-1.3) mg/dL AST (14-36) U/L ALT (0-35) U/L Alkaline Phosphatase (38-126) U/L Troponin I (0.000-0.034) ng/mL NT-Pro-B Natriuret Pep (0-900) pg/mL Serum Total Protein (6.3-8.2) g/dL Albumin (3.5-5.0) g/dL Urinalys Dipstick Clnc Urine Color (YELLOW) Urine Appearance (CLEAR) Urine pH (5-6) Ur Specific [place] (1.005-1.025) POC Urine Protein Conf (Negative) Urine Ketones (NEGATIVE) Urine Nitrite (NEGATIVE) Urine Bilirubin (NEGATIVE) Urine Urobilinogen (0-1) mg/dL Urine Leukocytes (NEGATIVE) Urine WBC (Auto) (0-5) /HPF Urine RBC (Auto) (0-2) /HPF U Epithel Cells (Auto) (FEW) /HPF Urine Bacteria (Auto) (NEGATIVE) /HPF Urine RBC (0-5) Ced/ul Urine Mucus (Auto) (NEGATIVE) /HPF Ur Culture Indicated? Urine Glucose (NEGATIVE) mg/dL Influenza Type A Ag (NEGATIVE) Influenza Type B Ag (NEGATIVE) RSV (PCR) (Negative) SARS-CoV-2 (PCR) (NEGATIVE) Slides for Path Review YES - Progress Progress Note: 03/07/22 17:08 1L NS bolus Pt wo hempotysis in ER Obs per Dr. Abbott Counseled pt/family regarding: lab results, diagnosis, need for follow-up, rad results - Departure Departure Disposition: Observation Clinical Impression: Hemoptysis, Pulmonary emboli, Dehydration Condition: Stable Critical Care Time: No
[2022-03-07 10:53] LABS: ALBUMIN 4.3 g/dL (3.5-5.0); ALKALINE PHOSPHATASE 72 U/L (38-126); ANION GAP 13.4 MEQ/L (5-15); BLOOD UREA NITROGEN 38 mg/dL (7-17); CHLORIDE 106 mmol/L (98-107); Calcium 8.7 mg/dL (8.4-10.2); Carbon Dioxide 21 mmol/L (22-30); Creatinine 1 0.69 mg/dL (0.52-1.04); EST GLOMERULAR FILTRATION RATE > 60.0 ML/MIN; Glucose 131 mg/dL (74-106); NT PRO BNP 199 pg/mL (0-900); Potassium 4.2 mmol/L (3.5-5.1); SGOT/AST 33 U/L (14-36); SGPT/ALT 39 U/L (0-35); SODIUM 136 mmol/L (137-145); Total Protein 7.4 g/dL (6.3-8.2)
[2022-03-07 11:06] LABS: INFLUENZA A NEGATIVE (NEGATIVE); INFLUENZA B NEGATIVE (NEGATIVE); RESPIRATORY SYNCTIAL VIRUS NEGATIVE (Negative); SARS-CoV-2 Xpert Express NEGATIVE (NEGATIVE)
[2022-03-07] MEDS ORDERED: HYDROCODONE-ACETAMIN 10-325 MG PO ONE (11:45)
[2022-03-07 11:51] LABS: Bacteria FEW /HPF (NEGATIVE); Mucus SLIGHT /HPF (NEGATIVE); RBC 0-2 /HPF (0-2)
[2022-03-07 11:53] LABS: Appearance CLEAR (CLEAR); Bilirubin NEGATIVE (NEGATIVE); Glucose NEGATIVE (NEGATIVE); Ketones NEGATIVE (NEGATIVE)
[2022-03-07 11:54] LABS: Nitrite NEGATIVE (NEGATIVE); Protein,Urine Dip TRACE (Negative); RBC NEGATIVE Ery/ul (0-5); Specific Gravity 1.025 (1.005-1.025); Urine Cultured Indicated? YES; Urobilinogen 1 mg/dL (0-1)
[2022-03-07 11:55] LABS: Dipstick done @ ? MAIN LAB
--- NOTE | 2022-03-07 12:40 | XRAY ---
Indication: Hemoptysis. Known pulmonary embolus. Multiple contiguous axial images obtained through the chest using 80 cc Isovue 370 contrast and PE protocol. Comparison: August 06, 2020 Good opacification of the pulmonary arteries to include the lobar and segmental branches. Nonoccluding pulmonary emboli seen in the distal right main pulmonary artery extending into right lower lobe branch. Additional nonoccluding pulmonary emboli segmental branches throughout the right lung and lesser degree anterior segment left lower lobe. Heart not enlarged again with left Port-A-Cath. Aorta again demonstrates minimal calcifications without aneurysm/dissection. No pathologic mediastinal/hilar lymphadenopathy. Again moderate size hiatal hernia with partial intrathoracic stomach. Lungs are inflated and clear. Bony thorax intact again with mild degenerative changes throughout the spine. Limited upper abdomen again demonstrates fatty liver and right adrenal adenoma. New markedly distended gallbladder. Impression: 1. New diffuse right lung and tiny left lower lobe nonoccluding PE. Patient reports known pulmonary embolus, presumed diagnosed at outside facility. 2. Markedly distended gallbladder better evaluated with sonogram if clinically warranted. 3. Again hiatal hernia with partial intrathoracic stomach.
[2022-03-07 13:41] LABS: Slide Review 1 YES
[2022-03-07] MEDS ORDERED: Sodium Chloride 0.9% 1000 ML 1,000 ML IV STA (14:58)
[2022-03-07] MEDS ORDERED: Sodium Chloride 0.9% 1000 ML 1,000 ML ONE (15:05)
--- NOTE | 2022-03-07 15:13 | XRAY ---
Indication: Abnormal same day chest CT. Limited right upper quadrant sonogram performed. Comparison: None Distended gallbladder with sludge in the dependent portion. No gallstones, wall thickening, or pericholecystic fluid. Common bile duct measures 3.7 mm. No intrahepatic biliary distention. Remaining visualized liver and right kidney are sonographically unremarkable. Right kidney measures 10.5 cm in length. Impression: Distended gallbladder with sludge. Negative for acute cholecystitis or biliary distention.
[2022-03-07] MEDS ORDERED: Zofran 4 MG/2 ML VIAL IV PRN (17:52)
[2022-03-07] MEDS: Sodium Chloride 0.9% 1000 ML 1,000 ML IV SCH (18:15)
[2022-03-07] MEDS ORDERED: Ativan 1 MG PO PRN (19:46)
[2022-03-07] MEDS ORDERED: HYDROCODONE-ACETAMIN 10-325 MG PO PRN (20:08)
[2022-03-07] MEDS: Decadron 4 MG PO SCH (21:56)
[2022-03-07] MEDS ORDERED: XARELTO 10 MG TABLET PO SCH (22:00)
[2022-03-07] MEDS ORDERED: ZOCOR 20MG PO SCH (22:00)
[2022-03-08] MEDS: Sodium Chloride 0.9% 1000 ML 1,000 ML IV SCH ×2 (03:28→14:56)
[2022-03-08 06:17] LABS: ALBUMIN 3.7 g/dL (3.5-5.0); ALKALINE PHOSPHATASE 64 U/L (38-126); ANION GAP 12.6 MEQ/L (5-15); BLOOD UREA NITROGEN 27 mg/dL (7-17); CHLORIDE 104 mmol/L (98-107); Calcium 7.6 mg/dL (8.4-10.2); Carbon Dioxide 22 mmol/L (22-30); Creatinine 1 0.56 mg/dL (0.52-1.04); EST GLOMERULAR FILTRATION RATE > 60.0 ML/MIN; Glucose 116 mg/dL (74-106); Potassium 4.3 mmol/L (3.5-5.1); SGOT/AST 28 U/L (14-36); SGPT/ALT 37 U/L (0-35); SODIUM 134 mmol/L (137-145); Total Protein 6.8 g/dL (6.3-8.2)
[2022-03-08 06:22] LABS: Absolute Neutrophil Ct (ANC) 8.86 x10^3/uL (1.4-6.9); Basophil (Absolute #) 0.01 x10^3/uL (0-0.4); Eosinophil (Absolute #) 0 x10^3/uL (0-0.5); Hematocrit 41.4 % (35-47); Hemoglobin 13.4 g/dL (12.0-16.0); Mean Corpuscular Hemoglobin 32.1 pg (26-32); Mean Corpuscular Hgb Concent. 32.4 g/dL (32-36); Mean Platelet Volume 9.6 fL (7.5-11.0); Monocyte (Absolute #) 0.61 x10^3/uL (0.0-1.3); Monocytes % 6.1 % (0.0-12.0); Neutrophil % 87.9 % (36.0-66.0); Platelet Count 163 x10^3/uL (150-450); Red Blood Count 4.18 x10^6/uL (4.1-5.4); Red Cell Distribution Width 23.9 % (11.5-14.0); White Blood Count 10.1 x10^3/uL (4.0-10.5)
[2022-03-08 07:04] LABS: Slide Review 1 YES
[2022-03-08] MEDS: Decadron 4 MG PO SCH (09:24)
[2022-03-08] MEDS ORDERED: PROTONIX 40 MG IV IV SCH (10:00)
--- NOTE | 2022-03-08 11:24 | PCM.SSS ---
History of Present Illness - Chief Complaint Chief Complaint: Dehydration/hemoptysis History of Present Illness: is a 71 year old female pt of mine from [facility] with PMHx COPD, CHF, CAD, HTN, hyperlipidemia, DM II, and OA with endometrial cancer with metastases to bone who was admitted through ER with hemoptysis. Pt saw Dr. Haley and c/o side effects from chemotherapy regimen; it was stopped and PET scan was done to check progress. Pulmonary emboli were diagnosed, and xarelto was started 2 days ago. Yesterday morning she was coughing, and coughed up "1/2 a washcloth full of" blood. She came to ER, where she did not have any hemoptysis. Was found to have new non-occluding bilat PEs on CT scan of the chest. Pt has been feeling weak with decreased po intake for about 2 weeks, worse over epa 1 week. Was up walking yesterday but this a.m. needed 2 assist to the commode. Had a little bleeding in her mouth this morning, familily is not sure from where. Last time pt had a PE, daughter notes she was in significant pain. This episode is different. Daughter thinks that a recent scan showed a cancerous lesion near pt's trachea. - Review of Systems Constitutional: Fatigue, Weakness Ears, Nose, & Throat: Other (bleeding of mouth) Respiratory: Cough, Other (hemoptysis) Musculoskeletal: Back Pain (last night) Psychological: Anxiety, Depression, No Suicidal Ideations Hematologic/Lymphatic: Blood Clots, Easy Bleeding All Other Systems: Reviewed and Negative Medications & Allergies Home Medications: Home Medication List Rosuvastatin Calcium [Crestor] 10 mg PO HS 06/07/13 [History Confirmed 03/07/22] Amlodipine Besylate 10 mg PO DAILY 02/01/19 [History Confirmed 03/07/22] Fluoxetine HCl 20 mg [Prozac 20 MG] 40 mg PO DAILY 03/07/22 [History Confirmed 03/07/22] Rivaroxaban 10 mg Tablet [Xarelto 10 mg Tablet] 15 mg PO DAILY 03/07/22 [History Confirmed 03/07/22] dexAMETHasone [Dexamethasone] 4 mg PO BID 03/07/22 [History Confirmed 03/07/22] Allergies/Adverse Reactions: Allergies Allergy/AdvReac Type Severity Reaction Status Date / Time adhesive Allergy Intermediate Rash Verified 03/07/22 09:36 latex Allergy Intermediate Rash Verified 03/07/22 09:36 Penicillins Allergy Intermediate Rash Verified 03/07/22 09:36 - Past Medical History Past Medical History: Yes Neurological History: Migraines, Peripheral Neuropathy ENT History: No Pertinent History Cardiac History: Congestive Heart Failure, Hypertension, Myocardial Infarction ([place]), Other Respiratory History: CHF, COPD Endocrine Medical History: Diabetes Type II, Other Musculoskelatal History: Osteoarthritis GI Medical History: No Pertinent History History: No Pertinent History Pyscho-Social History: Anxiety Reproductive Disorders: Ovarian Cancer, Uterine Cancer Comment: L GARFIELD, 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 - Past Surgical History Past Surgical History: Yes Neuro Surgical History: No Pertinent History Cardiac History: Angioplasty, Cardiac Catheterization, Cardiac Stent Respiratory Surgery: No Pertinent History GI Surgical History: No Pertinent History Genitourinary Surgical Hx: No Pertinent History Musculskeletal Surgical Hx: Joint Replacement Female Surgical History: Hysterectomy, Tubal Ligation Other Surgical History: Left hip replaced 2007, right hip replacement 2015 - Social History Smoking Status: Never smoker Exposure to second hand smoke: No Alcohol: None Drug Use: none Significant Family History: no pertinent family hx - Physical Exam Vital Signs: Vital Signs - 24 hr Temp Pulse Resp BP Pulse Ox 03/08/22 08:00 97.3 F 114 H 23 143/97 91 L 03/08/22 04:00 97.7 F 88 19 123/79 92 L 03/08/22 01:00 89 19 95 03/08/22 00:00 97.1 F 86 20 110/68 92 L 03/07/22 21:56 93 L 03/07/22 20:20 94 H 19 95 03/07/22 20:00 97.0 F 90 18 131/77 92 L 03/07/22 18:17 97.7 F 89 20 122/74 93 L 03/07/22 17:33 97.9 F 89 20 122/74 93 L 03/07/22 17:15 84 135/84 92 L 03/07/22 16:15 91 H 20 134/81 93 L 03/07/22 15:17 82 20 124/81 90 L 03/07/22 14:48 84 18 107/69 90 L 03/07/22 13:48 101 H 20 105/73 93 L 03/07/22 12:37 85 18 113/69 91 L 03/07/22 11:36 106 H 22 140/89 95 General Appearance: no apparent distress, other (lying quietly in bed. asks her daughter to answer most questions) Neurologic Exam: alert, oriented x 3 (says date is 03/09/22), cooperative Eye Exam: eyes nml inspection Ears, Nose, Throat Exam: moist mucous membranes Neck Exam: normal inspection, non-tender, No lymphadenopathy, No thyromegaly Respiratory Exam: normal breath sounds, lungs clear, No crackles/rales, No rhonchi, No wheezing Cardiovascular Exam: regular rate/rhythm, normal heart sounds, No murmur Gastrointestinal/Abdomen Exam: soft, normal bowel sounds, No tenderness, No distention, No mass, No guarding, No rebound Extremity Exam: No pedal edema, No swelling Skin Exam: normal color, warm, dry, No rash Results - Labs Lab/Micro Results: Lab Results-Last 24 Hours 03/07/22 03/07/22 03/08/22 Range/Units 09:56 11:38 05:20 WBC 10.1 (4.0-10.5) x10^3/uL RBC 4.18 (4.1-5.4) x10^6/uL Hgb 13.4 (12.0-16.0) g/dL Hct 41.4 (35-47) % MCV 99.0 (78-100) fL MCH 32.1 H (26-32) pg MCHC 32.4 (32-36) g/dL RDW 23.9 H (11.5-14.0) % Plt Count 163 (150-450) x10^3/uL MPV 9.6 (7.5-11.0) fL Gran % 87.9 H (36.0-66.0) % Immature Gran % (Auto) 0.9 H (0.00-0.4) % Nucleat RBC Rel Count 0.0 (0.00-0.1) % Eos # (Auto) 0 (0-0.5) x10^3/uL Immature Gran # (Auto) 0.09 H (0.00-0.03) x10^3u/L Absolute Lymphs (auto) 0.50 L (1.0-4.6) x10^3/uL Absolute Monos (auto) 0.61 (0.0-1.3) x10^3/uL Absolute Nucleated RBC 0.00 (0.00-0.01) x10^3u/L Lymphocytes % 5.0 L (24.0-44.0) % Monocytes % 6.1 (0.0-12.0) % Eosinophils % 0.0 (0.00-5.0) % Basophils % 0.1 (0.0-0.4) % Absolute Granulocytes 8.86 H (1.4-6.9) x10^3/uL Basophils # 0.01 (0-0.4) x10^3/uL Sodium (137-145) mmol/L Potassium (3.5-5.1) mmol/L Chloride (98-107) mmol/L Carbon Dioxide (22-30) mmol/L Anion Gap (5-15) MEQ/L BUN (7-17) mg/dL Creatinine (0.52-1.04) mg/dL Estimated GFR ML/MIN Glucose (74-106) mg/dL Calcium (8.4-10.2) mg/dL Total Bilirubin (0.2-1.3) mg/dL AST (14-36) U/L ALT (0-35) U/L Alkaline Phosphatase (38-126) U/L Serum Total Protein (6.3-8.2) g/dL Albumin (3.5-5.0) g/dL Urinalys Dipstick Clnc MAIN LAB Urine Color YELLOW (YELLOW) Urine Appearance CLEAR (CLEAR) Urine pH 6.0 (5-6) Ur Specific [place] 1.025 (1.005-1.025) POC Urine Protein Conf TRACE (Negative) Urine Ketones NEGATIVE (NEGATIVE) Urine Nitrite NEGATIVE (NEGATIVE) Urine Bilirubin NEGATIVE (NEGATIVE) Urine Urobilinogen 1 (0-1) mg/dL Urine Leukocytes NEGATIVE (NEGATIVE) Urine WBC (Auto) 3-5 (0-5) /HPF Urine RBC (Auto) 0-2 (0-2) /HPF U Epithel Cells (Auto) NONE (FEW) /HPF Urine Bacteria (Auto) FEW (NEGATIVE) /HPF Urine RBC NEGATIVE (0-5) Ced/ul Urine Mucus (Auto) SLIGHT (NEGATIVE) /HPF Ur Culture Indicated? YES Urine Glucose NEGATIVE (NEGATIVE) mg/dL Slides for Path Review YES YES 03/08/22 Range/Units 05:20 WBC (4.0-10.5) x10^3/uL RBC (4.1-5.4) x10^6/uL Hgb (12.0-16.0) g/dL Hct (35-47) % MCV (78-100) fL MCH (26-32) pg MCHC (32-36) g/dL RDW (11.5-14.0) % Plt Count (150-450) x10^3/uL MPV (7.5-11.0) fL Gran % (36.0-66.0) % Immature Gran % (Auto) (0.00-0.4) % Nucleat RBC Rel Count (0.00-0.1) % Eos # (Auto) (0-0.5) x10^3/uL Immature Gran # (Auto) (0.00-0.03) x10^3u/L Absolute Lymphs (auto) (1.0-4.6) x10^3/uL Absolute Monos (auto) (0.0-1.3) x10^3/uL Absolute Nucleated RBC (0.00-0.01) x10^3u/L Lymphocytes % (24.0-44.0) % Monocytes % (0.0-12.0) % Eosinophils % (0.00-5.0) % Basophils % (0.0-0.4) % Absolute Granulocytes (1.4-6.9) x10^3/uL Basophils # (0-0.4) x10^3/uL Sodium 134 L (137-145) mmol/L Potassium 4.3 (3.5-5.1) mmol/L Chloride 104 (98-107) mmol/L Carbon Dioxide 22 (22-30) mmol/L Anion Gap 12.6 (5-15) MEQ/L BUN 27 H (7-17) mg/dL Creatinine 0.56 (0.52-1.04) mg/dL Estimated GFR > 60.0 ML/MIN Glucose 116 H (74-106) mg/dL Calcium 7.6 L (8.4-10.2) mg/dL Total Bilirubin 1.50 H (0.2-1.3) mg/dL AST 28 (14-36) U/L ALT 37 H (0-35) U/L Alkaline Phosphatase 64 (38-126) U/L Serum Total Protein 6.8 (6.3-8.2) g/dL Albumin 3.7 (3.5-5.0) g/dL Urinalys Dipstick Clnc Urine Color (YELLOW) Urine Appearance (CLEAR) Urine pH (5-6) Ur Specific [place] (1.005-1.025) POC Urine Protein Conf (Negative) Urine Ketones (NEGATIVE) Urine Nitrite (NEGATIVE) Urine Bilirubin (NEGATIVE) Urine Urobilinogen (0-1) mg/dL Urine Leukocytes (NEGATIVE) Urine WBC (Auto) (0-5) /HPF Urine RBC (Auto) (0-2) /HPF U Epithel Cells (Auto) (FEW) /HPF Urine Bacteria (Auto) (NEGATIVE) /HPF Urine RBC (0-5) Ced/ul Urine Mucus (Auto) (NEGATIVE) /HPF Ur Culture Indicated? Urine Glucose (NEGATIVE) mg/dL Slides for Path Review - Radiology Impressions Radiology Exams & Impressions: Radiology Procedures Category Date Time Status ABDOMINAL-LIMITED [US] Stat Exams 03/07/22 14:59 Completed CHEST 1 VIEW (PORTABLE) Stat Exams 03/07/22 09:57 Taken CHEST WITH CONTRAST [CT] Stat Exams 03/07/22 10:57 Completed Assessment/Plan (1) Pulmonary emboli Current Visit: Yes Status: Acute Assessment & Plan: Dr. Flores agreed with holding xarelto. monitoring pt. She will be transferred to if beds available and agreeable to hospitalist, with Heme/Onc to consult. I discussed with family. Code(s): I26.99 - OTHER PULMONARY EMBOLISM WITHOUT ACUTE COR PULMONALE (2) Hemoptysis Current Visit: Yes Status: Acute Code(s): R04.2 - HEMOPTYSIS (3) Dehydration Current Visit: Yes Status: Acute Code(s): E86.0 - DEHYDRATION (4) COPD (chronic obstructive pulmonary disease) Current Visit: Yes Status: Chronic Qualifiers: COPD type: COPD with acute exacerbation Qualified Code(s): J44.1 - Chronic obstructive pulmonary disease with (acute) exacerbation Assessment & Plan: likely, v sinusitis; will treat with IV rocephin (no zithromax or levaquin, unsure about chemotherapy regimen and possible interactions). (5) CHF (congestive heart failure) Current Visit: Yes Status: Chronic Qualifiers: Heart failure type: diastolic Heart failure chronicity: chronic Qualified Code(s): I50.32 - Chronic diastolic (congestive) heart failure Code(s): I50.9 - HEART FAILURE, UNSPECIFIED (6) CAD (coronary artery disease) Current Visit: Yes Status: Chronic Qualifiers: Coronary Disease-Associated Artery/Lesion type: [place] artery [place] vs. transplanted heart: [place] heart Associated angina: without angina Qualified Code(s): I25.10 - Atherosclerotic heart disease of [place] coronary artery without angina pectoris Code(s): I25.10 - ATHSCL HEART DISEASE OF [place] CORONARY ARTERY W/O ANG PCTRS (7) Hyperlipidemia Current Visit: Yes Status: Chronic Qualifiers: Hyperlipidemia type: mixed hyperlipidemia Qualified Code(s): E78.2 - Mixed hyperlipidemia Code(s): E78.5 - HYPERLIPIDEMIA, UNSPECIFIED (8) Diabetes mellitus, type II Current Visit: Yes Status: Chronic Qualifiers: Diabetes mellitus terminal block assembler insulin use: without [place] [facility] use Diabetes mellitus complication status: without complication Qualified Code(s): E11.9 - Type 2 diabetes mellitus without complications (9) Osteoarthritis Current Visit: Yes Status: Chronic Qualifiers: Osteoarthritis location: spine Spinal region: lumbosacral Spinal osteoarthritis complication: without myelopathy or radiculopathy Qualified Code(s): M47.817 - Spondylosis without myelopathy or radiculopathy, lumbosacral region Code(s): M19.90 - UNSPECIFIED OSTEOARTHRITIS, UNSPECIFIED SITE (10) Anxiety Current Visit: No Status: Chronic Code(s): F41.9 - ANXIETY DISORDER, UNSPECIFIED (11) Hypertension Current Visit: No Status: Chronic Qualifiers: Hypertension type: primary hypertension Qualified Code(s): I10 - Essential (primary) hypertension Assessment & Plan: She is on an antihypertensive, per family, they don't know the name. BP 140s/90s currently. Code(s): I10 - ESSENTIAL (PRIMARY) HYPERTENSION Hospital Summary - Hospital Course Hospital Course: Pt is 71 yo female with multiple medical issues and endometrial cancer with metastases to bone, admitted through ER with PEs and hemoptysis. Recently started xarelto - took one dose then had the bleeding. Is on hold currently. I spoke with Dr. Flores, environmental services supervisor for Dr. Haley. She agrees with holding the xarelto and would like the pt transferred to [facility] for further evaluation and treatment (asked that she be admitted under hospitalist with hematology to consult). - Vitals & Intake/Output Vital Signs: Vital Signs Temperature 97.3 F 03/08/22 08:00 Pulse Rate 114 H 03/08/22 08:00 Respiratory Rate 23 03/08/22 08:00 Blood Pressure 143/97 03/08/22 08:00 O2 Sat by Pulse Oximetry 91 L 03/08/22 08:00 Intake & Output: Intake & Output 03/05/22 03/06/22 03/07/22 03/08/22 11:59 11:59 11:59 11:59 Intake Total 1356 Output Total 700 Balance 656 Weight 99.3 kg 99.5 kg - Lab Result Diagrams: 03/08/22 05:20 03/08/22 05:20 Lab Results-Last 24 Hrs: Lab Results-Last 24 Hours 03/07/22 03/07/22 03/08/22 Range/Units 09:56 11:38 05:20 WBC 10.1 (4.0-10.5) x10^3/uL RBC 4.18 (4.1-5.4) x10^6/uL Hgb 13.4 (12.0-16.0) g/dL Hct 41.4 (35-47) % MCV 99.0 (78-100) fL MCH 32.1 H (26-32) pg MCHC 32.4 (32-36) g/dL RDW 23.9 H (11.5-14.0) % Plt Count 163 (150-450) x10^3/uL MPV 9.6 (7.5-11.0) fL Gran % 87.9 H (36.0-66.0) % Immature Gran % (Auto) 0.9 H (0.00-0.4) % Nucleat RBC Rel Count 0.0 (0.00-0.1) % Eos # (Auto) 0 (0-0.5) x10^3/uL Immature Gran # (Auto) 0.09 H (0.00-0.03) x10^3u/L Absolute Lymphs (auto) 0.50 L (1.0-4.6) x10^3/uL Absolute Monos (auto) 0.61 (0.0-1.3) x10^3/uL Absolute Nucleated RBC 0.00 (0.00-0.01) x10^3u/L Lymphocytes % 5.0 L (24.0-44.0) % Monocytes % 6.1 (0.0-12.0) % Eosinophils % 0.0 (0.00-5.0) % Basophils % 0.1 (0.0-0.4) % Absolute Granulocytes 8.86 H (1.4-6.9) x10^3/uL Basophils # 0.01 (0-0.4) x10^3/uL Sodium (137-145) mmol/L Potassium (3.5-5.1) mmol/L Chloride (98-107) mmol/L Carbon Dioxide (22-30) mmol/L Anion Gap (5-15) MEQ/L BUN (7-17) mg/dL Creatinine (0.52-1.04) mg/dL Estimated GFR ML/MIN Glucose (74-106) mg/dL Calcium (8.4-10.2) mg/dL Total Bilirubin (0.2-1.3) mg/dL AST (14-36) U/L ALT (0-35) U/L Alkaline Phosphatase (38-126) U/L Serum Total Protein (6.3-8.2) g/dL Albumin (3.5-5.0) g/dL Urinalys Dipstick Clnc MAIN LAB Urine Color YELLOW (YELLOW) Urine Appearance CLEAR (CLEAR) Urine pH 6.0 (5-6) Ur Specific [place] 1.025 (1.005-1.025) POC Urine Protein Conf TRACE (Negative) Urine Ketones NEGATIVE (NEGATIVE) Urine Nitrite NEGATIVE (NEGATIVE) Urine Bilirubin NEGATIVE (NEGATIVE) Urine Urobilinogen 1 (0-1) mg/dL Urine Leukocytes NEGATIVE (NEGATIVE) Urine WBC (Auto) 3-5 (0-5) /HPF Urine RBC (Auto) 0-2 (0-2) /HPF U Epithel Cells (Auto) NONE (FEW) /HPF Urine Bacteria (Auto) FEW (NEGATIVE) /HPF Urine RBC NEGATIVE (0-5) Ced/ul Urine Mucus (Auto) SLIGHT (NEGATIVE) /HPF Ur Culture Indicated? YES Urine Glucose NEGATIVE (NEGATIVE) mg/dL Slides for Path Review YES YES 03/08/22 Range/Units 05:20 WBC (4.0-10.5) x10^3/uL RBC (4.1-5.4) x10^6/uL Hgb (12.0-16.0) g/dL Hct (35-47) % MCV (78-100) fL MCH (26-32) pg MCHC (32-36) g/dL RDW (11.5-14.0) % Plt Count (150-450) x10^3/uL MPV (7.5-11.0) fL Gran % (36.0-66.0) % Immature Gran % (Auto) (0.00-0.4) % Nucleat RBC Rel Count (0.00-0.1) % Eos # (Auto) (0-0.5) x10^3/uL Immature Gran # (Auto) (0.00-0.03) x10^3u/L Absolute Lymphs (auto) (1.0-4.6) x10^3/uL Absolute Monos (auto) (0.0-1.3) x10^3/uL Absolute Nucleated RBC (0.00-0.01) x10^3u/L Lymphocytes % (24.0-44.0) % Monocytes % (0.0-12.0) % Eosinophils % (0.00-5.0) % Basophils % (0.0-0.4) % Absolute Granulocytes (1.4-6.9) x10^3/uL Basophils # (0-0.4) x10^3/uL Sodium 134 L (137-145) mmol/L Potassium 4.3 (3.5-5.1) mmol/L Chloride 104 (98-107) mmol/L Carbon Dioxide 22 (22-30) mmol/L Anion Gap 12.6 (5-15) MEQ/L BUN 27 H (7-17) mg/dL Creatinine 0.56 (0.52-1.04) mg/dL Estimated GFR > 60.0 ML/MIN Glucose 116 H (74-106) mg/dL Calcium 7.6 L (8.4-10.2) mg/dL Total Bilirubin 1.50 H (0.2-1.3) mg/dL AST 28 (14-36) U/L ALT 37 H (0-35) U/L Alkaline Phosphatase 64 (38-126) U/L Serum Total Protein 6.8 (6.3-8.2) g/dL Albumin 3.7 (3.5-5.0) g/dL Urinalys Dipstick Clnc Urine Color (YELLOW) Urine Appearance (CLEAR) Urine pH (5-6) Ur Specific [place] (1.005-1.025) POC Urine Protein Conf (Negative) Urine Ketones (NEGATIVE) Urine Nitrite (NEGATIVE) Urine Bilirubin (NEGATIVE) Urine Urobilinogen (0-1) mg/dL Urine Leukocytes (NEGATIVE) Urine WBC (Auto) (0-5) /HPF Urine RBC (Auto) (0-2) /HPF U Epithel Cells (Auto) (FEW) /HPF Urine Bacteria (Auto) (NEGATIVE) /HPF Urine RBC (0-5) Ced/ul Urine Mucus (Auto) (NEGATIVE) /HPF Ur Culture Indicated? Urine Glucose (NEGATIVE) mg/dL Slides for Path Review - Radiology Exams Ordered Rad Exams-Entire Visit: Radiology Procedures Category Date Time Status ABDOMINAL-LIMITED [US] Stat Exams 03/07/22 14:59 Completed CHEST 1 VIEW (PORTABLE) Stat Exams 03/07/22 09:57 Taken CHEST WITH CONTRAST [CT] Stat Exams 03/07/22 10:57 Completed - Procedures and Test Procedures and Tests throughout Hospitalization: Therapy Orders & Screens 03/07/22 18:53 OT Screen per Nursing Assess ONCE Comment: Protocol Order Physician Instructions: Greater than 3 points order OT Admission Screening Reason For Exam: Triggered on Admission Diagnosis: Dehydration/hemoptysis Open Wound/Cellutlitis/Pressure Ulcers: No Acute Fx/ORIF/Change in wt bearing status: No Severe MUSCULOSKELETAL pain: No ADL Dysfunction: Yes: recent profound weakness Acute CVA w/Hemiparesis/Hemiplegia: No Decreased Functional Mobility/Strength: Yes: recent profound weakness Sprain/Strain: No Acute Post-op Mobility Dysfunction: No Total Points: 4 PT Screen per Nursing Assess ONCE Comment: Protocol Order Physician Instructions: Greater than 3 points order PT Admission Screenin Reason For Exam: Triggered on Admission Diagnosis: Dehydration/hemoptysis Open Wound/Cellutlitis/Pressure Ulcers: No Acute Fx/ORIF/Change in wt bearing status: No Severe MUSCULOSKELETAL pain: No ADL Dysfunction: Yes: recent profound weakness Acute CVA w/Hemiparesis/Hemiplegia: No Decreased Functional Mobility/Strength: Yes: recent profound weakness Sprain/Strain: No Acute Post-op Mobility Dysfunction: No Total Points: 4 - Discharge Disposition: Home, Self-Care Condition: Stable Prescriptions: No Action Rosuvastatin Calcium [Crestor] 10 mg PO HS Amlodipine Besylate 10 mg PO DAILY Rivaroxaban 10 mg Tablet [Xarelto 10 mg Tablet] 15 mg PO DAILY Fluoxetine HCl 20 mg [Prozac 20 MG] 40 mg PO DAILY dexAMETHasone [Dexamethasone] 4 mg PO BID Follow up with: LACY CORONADO [Primary Care Provider] -
[2022-03-08] MEDS ORDERED: ROCEPHIN 1 Gm-D5w 50 ml Bag** 1 G/50 ML IVPB IV SCH (13:00)
[2022-03-08] MEDS ORDERED: NORVASC 5 MG PO SCH (14:00)
[2022-03-08] MEDS ORDERED: Prozac 20 MG PO SCH (14:00)
[2022-03-08 17:27] VITALS: BP 142/79; PULSE 94; O2SAT 90
[2022-03-08] MEDS ORDERED: Decadron 4 MG PO SCH (22:00)
[2022-03-08] MEDS ORDERED: NON-FORMULARY ITEM (Rosuvastatin Calcium [Crestor] 10 MG Tablet) PO SCH (22:00)
--- NOTE | 2022-03-11 10:08 | XRAY ---
Indication: Hemoptysis. Known uterine cancer. Comparison: November 28, 2020 Portable chest inflated and remains clear. Heart not enlarged again with left Port-A-Cath and small hiatal hernia. Bony thorax intact again with mild osteopenia and degenerative changes. Impression: Nonacute chest with chronic features.
== END 2022-03-08 16:28 | disposition home or self-care (01) ==
LOC: ED 09:32 → MED SURG 17:29
PROVIDERS: ADMIT Family Medicine; ATTEND Family Medicine
DX: I26.99 Other pulmonary embolism without acute cor pulmonale (principal); R04.2 Hemoptysis; E86.0 Dehydration; J44.1 Chronic obstructive pulmonary disease with (acute) exacerbation; I11.0 Hypertensive heart disease with heart failure; I50.9 Heart failure, unspecified; I25.10 Atherosclerotic heart disease of native coronary artery without angina pectoris; E78.5 Hyperlipidemia, unspecified; E11.9 Type 2 diabetes mellitus without complications; M47.817 Spondylosis without myelopathy or radiculopathy, lumbosacral region; C54.1 Malignant neoplasm of endometrium; F41.9 Anxiety disorder, unspecified; Z20.828 Contact with and (suspected) exposure to other viral communicable diseases; Z79.899 Other long term (current) drug therapy; Z79.01 Long term (current) use of anticoagulants; Z85.42 Personal history of malignant neoplasm of other parts of uterus; Z85.43 Personal history of malignant neoplasm of ovary
CPT/HCPCS: 0241U; 36000; 36415; 71045; 71260; 76705; 80053; 81015; 83605; 83880; 84484; 85025; 85610; 85730; 87077; 87086; 87186; 93005; 96360; 99285; G0378; J0696; A9270-GY